=== PATIENT | male | born 1950 | race African-American/Black ===

== ENCOUNTER 2019-07-27 21:57 | Inpatient (IN) | payer MEDICARE, OTHER ==
[~2019-07-27] VITALS: Ht 185.4 cm; Wt 72.6 kg
[~2019-07-27 21:57] MED LIST: ADULT LOW DOSE81 MG PO; AMLODIPINE BESY10 MG PO; BENADRYL25 MG PO; CALCIUM600 MG PO; CENTRUM SILVER1 EAC6 PO; CIPRO500 MG PO; FISH OIL 1,0001 EAC5 PO; FLAGYL500 MG PO; GLUCOSAMINE CH1 EAC5 PO; LISINOPRIL10 MG PO; MELATONIN5 M3 PO; METOPROLOL SUCC25 MG PO; NIFEDIPINE20 MG PO; NORCO 10-325 T1 EACH PO; NORCO 5-325 TA1 EACH PO; NORVASC5 MG PO; POTASSIUM CHLO10 MEQ PO; PREDNISONE20 MG PO; TRIAMTERENE-HC1 EAC3 PO; VITAMIN C WIT1000 MG PO; ZOFRAN ODT8 MG PO
--- OUTSIDE RECORDS SUMMARY | 2019-07-27 22:00 | XMS ---
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 EJames VISIT COUNT (12 MO.) 1 PIYUSH Delgado TOTAL 1 NOTE: Visits indicate total known visits. ED/UCC VISIT TRACKING (12 MO.) 07/27/2019 21:[address] [facility] TYPE: Emergency COMPLAINT: - ABD PAIN INPATIENT VISIT TRACKING (12 MO.) No inpatient visits to display in this time frame [email or web address]
[2019-07-27] MEDS ORDERED: PROBIOTIC1 EAC4 PO (22:06)
--- NOTE | 2019-07-28 02:42 | NUR ---
ADMIT TO RM 127 PER STRETCHER FROM ED. IS ALERT ORIENTED X3. RATES ABD PAIN 3/10 AND THAT IT IS MANAGABLE NOW. NO NAUSEA. VOIDED 200ML. PT IS AWARE OF BEING NPO. TX FOR NOW IS IVF,ABX AND BOWEL REST. PT UNDERSTANDS.
--- NOTE | 2019-07-28 04:30 | NUR ---
IS SLEEPING. RESP REG.
--- NOTE | 2019-07-28 06:09 | NUR ---
pts VS complete. Mouth swabs given. nothing further needed at this time.
--- NOTE | 2019-07-28 06:54 | NUR ---
PAIN HAS INCREASED AND PT IS REQUESTING PAIN MED. GIVEN 15 MG TORRADOL IV.
--- NOTE | 2019-07-28 07:29 | NUR ---
CONT TO HAVE ABD PAIN.
--- NOTE | 2019-07-28 07:39 | NUR ---
GIVEN 5 MG MORPHINE IV FOR CONT ABD PAIN.
--- NOTE | 2019-07-28 07:45 | NUR ---
PT INTO VISIT AT THIS TIME, ALL QUESTIONS ANSWERED. PT PAIN IS BETTER, HE HAD JUST RECEIVED SOME MORPHINE.
--- NOTE | 2019-07-28 10:00 | NUR ---
PT TRANSFERED VIA BED TO ROOM 123 AT THIS TIME. REPORT CALLED TO DEDE ALL QUESTIONS ANSWERED AT THIS TIME. ALL OF THE PT PERSOANL BELONGINGS SENT WITH PT ALSO AT THIS TIME. CELL PHONE, HEEL CEMENTER AND ALL OF HIS CLOTHING. PT HAS REMAINED NPO EXCEPT FOR A SIP WITH PO MEDS THIS AM.
--- NOTE | 2019-07-28 10:00 | NUR ---
SPOKE WITH PATIENT IN ROOM. PATIENT STATES HE LIVES WITH . PATIENT HAS A WALKER AND CANE AT HOME, DOES NOT USE THEM CURRENTLY. HAS MANY STAIRS AT HOME WITH RAIL, HAS NOT HAD ISSUES WITH THIS. PATIENT DRIVES. HE IS RETIRED BUT HE STATES "I THINK I'M BUSIER NOW". HE PLANS TO RETURN HOME AT DISCHARGE, HAS A PCP AND STATES HE HAS ENOUGH MONEY FOR FOOD, BILLS AND MEDICATIONS. NO KNOWN BARRIERS AT THIS TIME TO DISCHARGE HOME. PATIENT DENIES QUESTIONS, WILL FOLLOW NEEDED.
--- NOTE | 2019-07-28 10:17 | NUR ---
PT TO MED-SURG UNIT. PT ARRIVED A&OX4, RESP EVEN AND NON LABORED. PT ORIENTED TO ROOM AND CALL LIGHT. PT DENIES NEEDS AT THIS TIME. VS ARE STABLE. NO NEEDS AT THIS TIME. CALL LIGHT WITHIN REACH.
--- NOTE | 2019-07-28 11:50 | NUR ---
ADMIN TYLENOL 1000MG IV FOR REPORTS OF 5/10 ABD PAIN.
--- NOTE | 2019-07-28 13:10 | NUR ---
KARLA FROM DR. LINTON TO ADVANCE DIET TO CLEARS.
--- NOTE | 2019-07-28 13:38 | HP ---
[facility] [address], [place] [address] Signed ADMISSION DATE: 07/28/2019 REASON FOR ADMISSION: Abdominal pain, locules of free air and mesentery gas and fever. HISTORY OF PRESENT ILLNESS: This 69-year-old black man has had over a month of vague abdominal pain. He has had no fever, chills, but felt very poorly yesterday and presented to the emergency room late at night where he was evaluated by Dr. Van. A CT scan was performed, which showed extensive inflammatory changes of the upper abdomen in the mesentery and omentum with small locule of free air and mesenteric gas. Inflammatory changes of the stomach, small bowel and transverse colon were noted as well. Extensive diverticulosis including the transverse colon was noted and findings suggestive of diverticulitis were made. There was some free fluid in the upper abdomen without focal fluid collection or abscess. There is no sign of bowel obstruction, but extensive diverticulosis of the colon. Incidental findings include a left kidney low-grade neoplasm versus hyperdense cyst. The patient is known to have had history of aortic dissection extending from the thorax. This is still present and was previously identified in 2015. The patient has had no evidence of white count, but has had a fever as high as 101 in the emergency room. He is admitted for further evaluation and care. The patient was evaluated by Dr. Byron Toribio for a reducible left inguinal hernia with repair on September 18, 2016. His other medical issues include hypertension. He has had possible aortic valve replacement in the past. Other medical issues include hypertension. He denies history of diabetes. MEDICATIONS: At time of admission include amlodipine, vitamin C, aspirin, calcium carbonate tablets, glucosamine chondroitin, Ole[place], and multivitamins. PAST SURGICAL HISTORY: Includes appendectomy and cardiac stent placement. No certain mention of aortic valve replacement, though that is a high probability. SOCIAL HISTORY: Patient lives between [place] and [facility], [place]. He is a long retired. He is a [employer] graduate of 1970. 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 REVIEW OF SYSTEMS: Electronically Signed By: CHRYSTAL LINTON MD 07/28/19 1338 PATIENT NAME: ELODIA BUSH SR HISTORY AND PHYSICAL DATE OF : 54 REPORT #: [id number] PHYSICIAN: CHRYSTAL LINTON MD PCP: JASON MENDOZA MD REPORT IS CONFIDENTIAL AND NOT TO BE RELEASED WITHOUT AUTHORIZATION [facility] [address], [place] [address] Signed He denies any chest pain or shortness of breath. He has had no hemoptysis or hematemesis or blood per rectum. His abdominal pain is mostly in the mid to lower abdomen rather in the upper abdomen. He has had no hemoptysis. PHYSICAL EXAMINATION: GENERAL: A very pleasant black man, who does not appear to be in severe distress at this time. VITAL SIGNS: Showed initial temperature of a 100.2, pulse of 89, blood pressure 122/76. NECK: Shows no thyromegaly or cervical adenopathy. Trachea is midline. CHEST: Shows normal respiratory excursion and shows no tachypnea. HEART: Regular. ABDOMEN: Flat and nondistended. There is minimal tenderness in the abdomen. No focal tenderness and clearly no peritonitis. EXTREMITIES: Show no clubbing, cyanosis, or edema. LABORATORY STUDIES: Show whi0te count of only 6.4, hematocrit 39.8, platelets 274,000. Neutrophils are 83.6%. Chem profile is essentially normal. Lactic acid is 1.2. Liver enzymes are normal. Lipase is 17. Urinalysis is essentially normal, specific gravity 1.016. CT scan was reviewed in detail as was a chest x-ray. Chest x-ray shows a prominent aortic bulb. There is no sign of effusion or other problem. ASSESSMENT AND PLAN: I have reviewed a CT scan. The inflammatory changes in the upper abdomen, which includes mesentery and omentum with small bubbles of free air in mesenteric gas. These changes are suggestive of possible transverse diverticulitis, possibly of perforation, but no well-formed abscess. His symptoms have been going on for at least a month. The possibility of a perforated peptic ulcer is considered. However, given the chronicity of symptoms, I think that is quite unlikely actually. At this point, he will be admitted to the hospital, I give him broad-spectrum antibiotic meropenem. Re-evaluation will be undertaken. I reviewed a CT scan in more detail with the Radiologist in the morning. There is no strict need for exploration at this moment. He may ultimately require laparoscopy to better characterize the source of the problem and provide for control of it. He does not have generalized peritonitis, progressive sepsis or anything else to mandate exploration urgently. Indeed, if this does represent a diverticulitis problem antibiotic therapy alone may be adequate. We discussed all this. We will initiate orders for admission to the hospital at this time. Electronically Signed By: CHRYSTAL LINTON MD 07/28/19 1338 PATIENT NAME: ELEAZAR BUNCHELODIA HISTORY AND PHYSICAL DATE OF : 54 REPORT #: [id number] PHYSICIAN: CHRYSTAL LINTON MD PCP: JASON MENDOZA MD REPORT IS CONFIDENTIAL AND NOT TO BE RELEASED WITHOUT AUTHORIZATION [address] [place] [address] Signed MD MANDEEP Guajardo/NAILA /[id number] cc: Jake Van DO Copies: JAKE VAN DO ~ Electronically Signed By: CHRYSTAL LINTON MD 07/28/19 1338 PATIENT NAME: ELODIA BUSH SR HISTORY AND PHYSICAL DATE OF : 54 REPORT #: [id number] PHYSICIAN: CHRYSTAL LINTON MD PCP: JASON MENDOZA MD REPORT IS CONFIDENTIAL AND NOT TO BE RELEASED WITHOUT AUTHORIZATION
--- NOTE | 2019-07-28 14:15 | NUR ---
PATIENT RESTING IN BED. VITAL SIGNS AND I&O DONE. CALL LIGHT WITHIN REACH. NO OTHER NEEDS AT THIS TIME
--- NOTE | 2019-07-28 17:20 | NUR ---
In and spoke with Milad. He is resting in bed. Complains of tender abd. States family members have diverticulites and he is sure this is what he has. He lives here and in [place]. 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 Is active and independent. Denies use of DME. Plans on dc to home, independent, when Dr. onofre.
--- NOTE | 2019-07-28 17:21 | NUR ---
PATIENT RESTING IN BED. VITAL SIGNS AND I&O DONE. CALL LIGHT WITHIN REACH. NO OTHER NEEDS AT THIS TIME
--- NOTE | 2019-07-28 18:35 | NUR ---
Admin toradol 15mg ivp for reports of 5/10 abd pain.
--- NOTE | 2019-07-28 20:53 | NUR ---
PT RESPONDS WHEN ENTERED ROOM. PT STATES THAT PAIN OCCURS WHEN HE FLEXES OR USES HIS ABD MUCSLES, WHILE HE LAYS STILL HE HAS NO PAIN. PT LUNG SOUNDS CLEAR, BOWLE TONE ACTIVE. URINE IS CLEAR DRU COLORED, QS. PTM AOX3. EXPRESSED HE DEFFINATLY FEELING BETTER BUT WANTING TO GET A GOOD NIGHTS REST.IV SITE WNL DRESSING CDI, LR RUNNING AT 10ML/HR. CALL LIGHT IN REACH, NO REQUEST AT THIS TIME
--- NOTE | 2019-07-28 21:08 | NUR ---
ROUNDED CHARGE. PATIENT IS RESTING IN BED. SHERICE LOYD PRESENT IN ROOM. PATIENT DENIES ANY COMMENTS, QUESTIONS OR CONCERNS. NO NEEDS NOTED. CALL LIGHT IN REACH.
--- NOTE | 2019-07-29 02:08 | NUR ---
0110 REPORT FROM ALTAGRACIA RN, THIS RN RESUMING CARE. PT SLEEPING.
--- NOTE | 2019-07-29 02:50 | NUR ---
1450 MEDICATION GIVEN PER EMAR FOR ELEVATED TEMP, IV FLUSHED AND WNL. PLAN TO START NEW IV DUE TO PLACEMENT AND FEILD START. PT AGREED.
--- NOTE | 2019-07-29 06:34 | NUR ---
PT ASLEEP OFF AND ON THROUGHOUT NIGHT, ABD NONDISTENDED AND PT DENIES TENDERNESS WITH PALPITATION. PT TEMP INCREASED TO 100.9 AND IV MEDICATION GIVEN, TEMP DECREASING AT THIS TIME. PT DRINKING FLUIDS AND NO NAUSEA AND MINIMAL PAIN NOTED. IV FLUIDS INFUSING AND PT ALERT AND ORIENTED.
--- NOTE | 2019-07-29 07:41 | NUR ---
0720: BEDSIDE REPORT RECIEVED FROM JOSE LOYD. PT LYING IN HIS BED AND HE STATES HE HAS SOME ABD PAIN BUT THAT IT REMAINS AT AN ACCEPTABLE LEVEL FOR HIM. HE STATES HE WILL CALL IF THE PAIN INCREASES. HE DENIES ANY OTHER PROBLEMS. CALL SALDIVAR WITHIN REACH.
--- NOTE | 2019-07-29 08:56 | NUR ---
PT RESTING IN HIS BED AND STATES HIS ABD PAIN IS A 6/10. HE DENIES ANY NAUSEA OR OTHER PROBLEMS. SEE EMAR. PT RECEIVING HIS ORDERED IV MEROPENUM AT THIS TIME.
--- NOTE | 2019-07-29 10:21 | NUR ---
Pt sleeping, RR 14.
[2019-07-29] MEDS ORDERED: TRIAMTERENE-HC1 EAC1 PO (10:29)
[2019-07-29] MEDS ORDERED: TAMSULOSIN HCL0.4 MG PO (10:30)
[2019-07-29] MEDS ORDERED: NORCO 5-325 TA1 EACH PO (10:30)
--- NOTE | 2019-07-29 10:59 | NUR ---
MED REC COMPLETE
--- NOTE | 2019-07-29 11:03 | NUR ---
Pt resting in his bed, he states his pain is now controled at a 3-4. He was encouarged to use his IS and to do some walking. Milad states he will call in a short bit to be taken for a walk.
--- NOTE | 2019-07-29 12:36 | NUR ---
PT STATES HIS PAIN IS NOW A 2/10 WHICH IS AN IMPROVMENT. SCD'S ARE ON AND RUNNING. BOWEL SOUNDS ARE ACTIVE. CALL SALDIVAR WITHIN REACH.
--- NOTE | 2019-07-29 13:15 | NUR ---
DR LINTON TO THE ROOM CHECKING ON THE PT. ELODIA DENIES PAIN OR PROBLEMS AT THIS TIME.
--- NOTE | 2019-07-29 14:40 | NUR ---
PT ATE 50% OF HIS LUNCH AND TOLERATED IT WELL AND HE CONTINUES TO DENIE PAIN FOLLOWING EATING. PT JUST RETURNED TO HIS ROOM FOLLOWING WALKING TWO LAPS IN THE HALLS. HE IS NOW GETTING READY FOR A SHOWER.
--- NOTE | 2019-07-29 14:49 | NUR ---
PT WAS LAYING IN BED WITH LIGHTS OUT. HE IS ALERT AND ORIENTED AND STATED THAT HIS PAIN WAS UNDER CONTROL. HE JUST WANTED TO GET SOME REST. PT WAS CHILLED- TURNED TEMP UP AND STAFF BROUGHT HIM A WARM BLANKET. EXTENDED A BLESSING, WILL FOLLOW NEEDED
--- NOTE | 2019-07-29 15:05 | NUR ---
PT HAS A TEMP OF 99.3 FOLLOWING A SHOWER. PT HANDED HIS IS WHICH HE IS USING AT THIS TIME, HE DENIES ANY PROBLEMS. WILL CONTINUE TO MONITOR.
--- NOTE | 2019-07-29 15:52 | NUR ---
PATIENT AND I WALKED TWO LAPS AROUND MED SURG. THIS AFTERNOON.
--- NOTE | 2019-07-29 15:56 | NUR ---
PTS FAMILY TO NURSES STATION STATING "ELODIA IS FREEZING COLD." VITALS TAKEN. TEMPERATURE NOTED TO BE 100.2. WARM BLANKETS PROVIDED. PTS RN NOTIFIED FOR MEDICAITON ADMINISTRATION. PT DENIES ADDITIONAL REQUESTS OR COMPLAINTS AT THIS TIME. CALL LIGHT WITHIN REACH. FAMILY AT BEDSIDE.
--- NOTE | 2019-07-29 16:01 | NUR ---
TEMP 100.2, PT ENCOUARGED TO USE HIS IS WHICH HE IS DOING. SEE EMAR.
--- NOTE | 2019-07-29 16:24 | NUR ---
101.8, PT JUST FINISHED A DOSE OF IV TYLENOL. HE IS CURRENTLY USING HIS IS AND HIS TEMP IS NOW 98.3
--- NOTE | 2019-07-29 18:00 | NUR ---
Patient sitting up in bed with family in room. IV abx infusing at 33 mls/hr. Temp of 99.5 degrees, patient ambulated hallways three times. Returned to bed, temp of 99.4 degrees. Warm blanket provided, denies further needs. Call light within reach.
--- NOTE | 2019-07-29 19:30 | NUR ---
PATIENT IN NO PAIN VISITING WITH SIGNIFICANT OTHER AT THIS TIME. CALL LIGHT IN REACH.
--- NOTE | 2019-07-29 21:00 | NUR ---
PATIENT'S SPOUSE GOING HOME. PATIENT HAVING NO PAIN, URINAL EMPTIED, NEW WAATER GIVEN, PM MEDS GIVEN. PATINT HAS NO OTHER NEEDS. LIGHT TURNED DOWN AND CALL LIGHT IN REACH.
--- NOTE | 2019-07-29 22:44 | NUR ---
PATIENT LAYING IN BED WATCHING TV, IN NO DISTRESS, CALL LIGHT IN REACH.
--- NOTE | 2019-07-29 23:15 | NUR ---
PATIENT STARTED OUT WITH FEVER OVER 101F, BUT THE ROOM WAS 76 DEGREES AND THE PATIENT WAS COVERED WITH A LOT OF COVERS. THERMOSTAT TURNED DOWN AND SOME BLANKETS TAKEN OFF, FEVER [id number] AND PATIENT GETTING A DOSE OF IV TYLENOL AND USING IS. CALL LIGHT IN REACH.
--- NOTE | 2019-07-30 00:58 | NUR ---
PATIENT'S FEVER DOWN SINCE THE IV TYLENOL, RESTING QUIETLY ON HIS RIGHT SIDE ,EYES CLOSED, RESPIRATIONS REGULAR AND EVEN. CALL LIGHT IN REACH.
--- NOTE | 2019-07-30 03:10 | NUR ---
PATIENT CALLED AND SAID HE WAS ALL WET FROM SWEATING. WENT TO PATIENT'S ROOM CHANGED HIS GOWN AND LINEN, FEVER HAD BROKE DOWN TO 97.8F ORAL. I REFILLED THE PATIENT'S WATER GLASS AND EMPTIED HIS URINAL AND HE IS GOING TO TRY AND GET SOME MORE SLEEP.
--- NOTE | 2019-07-30 05:20 | NUR ---
PATIENT HAD A FEVER THE FIRST PART OF THE SHIFT AND IT BROKE A COUPLE HOURS AGO AFTER IV TYLENOL, HAD A GOOD SWEAT AND WE CHANGED HIS WET GARMENTS AND BEDDING. PATIENT HAS RESTED WELL AND WITH VERY LITTLE DISCOMFORT THROUGH THE NIGHT STILL GETTING IV ANTIBIOTICS. RESTING QUIETLY AT THIS TIME EYES CLOSED AND RESPIRATIONS EVEN. CALL LIGHT IN REACH.
--- NOTE | 2019-07-30 07:05 | NUR ---
0655: Report recieved from Jose LOYD. Pt sleeping, call joiner within reach.
--- NOTE | 2019-07-30 09:16 | NUR ---
PT STATES HE ATE MOST OF HIS BREAKFAST BUT STATES HE STOPPED WHEN HE COULD TELL IF HE CONTINUED HE WOULD GET A STOMACH ACHE. TEMP THIS AM IS 99.1 AND HE RAN A FEVER LAST NIGHT PER THE LENS MARKER RN. DR LINTON ARRIVED TO THE ROOM AND WAS UPDATED TO THE PT'S TEMP LAST NIGHT. PT DENIES ANY PAIN AT THIS TIME.
--- NOTE | 2019-07-30 09:43 | NUR ---
PATIENT GIVEN GASTROGRAFIN IN APPLE JUICE WITH INSTRUCTIONS TO DRINK ONE GLASS AT 0945 AND THE SECOND AT 1045. PATIENT TO HAVE CT SCAN BETWEEN 1200 AND 1300 TODAY.
--- NOTE | 2019-07-30 10:20 | NUR ---
PT DENIES ANY PAIN OR PROBLEMS OTHER THAN NOW FEELING BOARD. HE IS WATCHING TV AT THIS TIME.
--- NOTE | 2019-07-30 12:15 | NUR ---
PATIENT UP TO BATHROOM TO VOID, BM, AND WAS NAUSEATED. PATIENT GIVEN 8MG OF IV ZOFRAN. THREE-HOUR IV MERRUM INFUSING.
--- NOTE | 2019-07-30 12:33 | NUR ---
Pt is off the floor as he was taken to CT.
--- NOTE | 2019-07-30 12:42 | NUR ---
PT LAYING IN BED ON R SIDE. HE IS ALERT AND ORIENTED. REQUESTED I TURN DOWN LIGHTS AND HE WANTED TO TAKE A NAP. WILL FOLLOW NEEDED
--- NOTE | 2019-07-30 13:04 | NUR ---
PATIENT RETURNED FROM CT. PATIENT HAS STOMACH CRAMPS, NAUSEATED AND VOMITED 100ML UPON RETURN. PATIENT GIVEN IV TORADOL FOR 7/10 SHARP ABD PAINS. PATIENT GIVEN WARM BLANKETS, PAIN HAS SLIGHTLY SUBSIDED.
--- NOTE | 2019-07-30 13:15 | NUR ---
In to speak with pt, he is gone for a CT. Will follow up later.
--- NOTE | 2019-07-30 13:16 | NUR ---
UPON THE PT RETURNING TO HIS ROOM FROM CT I WAS INFORMED THAT THE PT IS HAVING PAIN AND HAD SOME NAUSEA AND VOMITING AND HAD BEEN MEDICATED FOR BOTH. THE PT STATES HIS PAIN IS AN 8/10 AND WAS GIVEN A DOSE OF MS, SEE EMAR.
--- NOTE | 2019-07-30 13:25 | NUR ---
DR LINTON CAME TO THE ROOM AND CHECKED UP ON THE PT.
--- NOTE | 2019-07-30 13:44 | NUR ---
PT LEAVING FOR THE OR AT THIS TIME.
--- NOTE | 2019-07-30 13:50 | NUR ---
PATIENT GOT A SURGICAL WIPE DOWN. NEW GOWN.
--- NOTE | 2019-07-30 18:35 | NUR ---
07/30/191834 Aurora Cuellar 1824: PATIENT'S EYES OPEN. SPIT OUT ORAL AIRWAY. PATIENT THEN FELL BACK ASLEEP.
--- NOTE | 2019-07-30 19:00 | NUR ---
RECEIVED REPORT FROM RACH DELAROSA. pt NOT BACK FROM SURGERY YET. WHITEBOARD UPDATED.
--- NOTE | 2019-07-30 19:20 | NUR ---
190: Pt returned to room 123. Report recieved from Aurora LOYD. Milad remains drowsy but answers direct questions and follows commands. He denies any pain at this time. Mid line abd incision dressing has a very small amount of noted drainage in the middle of the dressing. The dressing covering the LLQ IVY drain site is CDI, the IVY drain is functioning correctly. His iliostomy bag is intact with a scant amount of green liquid drainage noted. NG tube is in place and taped. Call joiner within reach. The pt's friend is at the bedside. Yadav cath in place and draining clear yellow urine. SCD's on and running.
--- NOTE | 2019-07-30 19:29 | NUR ---
BETITO PLACEDDiamond SINGLETARY CRNA TO THE ROOM CHECKING IN ON THE PT.
--- NOTE | 2019-07-30 19:43 | NUR ---
ROUNDED ON pt. RECEIVED UPDATED REPORT FROM RACH DELAROSA. pt RESTING DROWSY, DENIES PAIN AND NAUSEA AT THIS TIME. VISITOR AT BEDSIDE. CALL LIGHT WITHIN REACH.
--- NOTE | 2019-07-30 20:35 | NUR ---
ASSESSMENT DONE. pt DROWSY. DRESSING CDI. NG TO LIS. PICKETT DRAINING WELL. ROOM TIDIED. MEDICATIONS GIVEN (SEE MAR). VISITOR AT BEDSIDE. DENIES PAIN AND NAUSEA AT THIS TIME. NO REQUESTS. CALL LIGHT WITHIN REACH.
--- NOTE | 2019-07-30 22:20 | NUR ---
MEDICATION DUE. pt LESS DROWSY THAN EARLIER IN SHIFT. SUCTION HAD BRIEFLY DISCONNECTED, TROUBLESHOT, NEW CONNECTOR IN PLACE. LINENS AND GOWN CHANGED, pt ASSISTED. MEDICATION INFUSING (SEE MAR). NO REQUESTS AT THIS TIME. CALL LIGHT WITHIN REACH. VISITOR AT BEDSIDE.
--- NOTE | 2019-07-30 23:11 | NUR ---
ROUNDED ON pt, RESTING IN BED. NO REQUESTS AT THIS TIME. NG TUBE TO LOW INTERMITTENT SUCTION, CONNECTION HOLDING. LIGHTS OFF FOR COMFORT. CALL LIGHT WITHIN REACH.
--- NOTE | 2019-07-31 01:27 | NUR ---
ROUNDED ON pt. RESTING WITH EYES CLOSED, RESPIRATIONS REGULAR AND UNLABORED. CALL LIGHT WITHIN REACH.
--- NOTE | 2019-07-31 02:30 | NUR ---
pt RESTING IN BED, WOKE TO NOISE. VITALS DONE. NEW IV FLUIDS HUNG. ASSESSMENT DONE. MIDLINE DRESSING CDI. DRAIN DRESSING SATURATED, NEW DRESSING APPLIED TO MAINTAIN SKIN INTEGRITY. pt DENIED PAIN AT THIS TIME. NG TUBE NOT DRAINING WELL, AIR BOLUS HEARD IN GASTRIC AREA. NG TUBE NOW DRAINING WELL TO LIS. NO REQUESTS AT THIS TIME. CALL LIGHT WITHIN REACH.
--- NOTE | 2019-07-31 04:23 | NUR ---
CALL LIGHT ON. pt STATED "IT'S BACKING UP IN A BIT" TROUBLESHOT NG TUBE. DRAINING WELL. pt REPORTED IT FELT BETTER. NO FURTHER REQUESTS AT THIS TIME. CALL LIGHT WITHIN REACH.
--- NOTE | 2019-07-31 06:38 | NUR ---
pt RESTED ON AN OFF DURING SHIFT. NG TO LIS, THICK OUTPUT REQUIRING ATTENTION TO TUBING. IVY DRAIN SATURATED AND CHANGED, SEROSANG OUTPUT. ILEOSTOMY DRAINING TO GRAVITY. PICKETT WITH DILUTE URINE. IVF AND IV ABX. NO PAIN DURING SHIFT. NO NAUSEA. USES CALL LIGHT APPROPRIATELY.
--- NOTE | 2019-07-31 07:55 | NUR ---
PATIENT RESTING IN BED. IN ROOM. PATIENT'S FACE AND HANDS CLEANED. CALL LIGHT WITHIN REACH. NO OTHER NEEDS AT THIS TIME
--- NOTE | 2019-07-31 08:56 | OR ---
[facility] [address], [place] [address] Signed DATE OF OPERATION: 07/30/2019 SURGEON: Chrystal Linton MD PREOPERATIVE DIAGNOSIS: Free intraperitoneal air consistent with perforated viscus and generalized peritonitis. POSTOPERATIVE DIAGNOSIS: Perforated sigmoid diverticulitis with peridiverticular and pelvic abscess. PROCEDURES PERFORMED: 1. Exploration of abdomen with drainage of pelvic and abdominal abscess fluid. 2. Left colectomy with sigmoidectomy and side-to-end coloproctostomy. 3. Splenic flexure mobilization. 4. Protective diverting loop ileostomy. ANESTHESIA: General endotracheal; Chrystal Rivera CRNA, and postoperative TAP block. INDICATIONS: This 69-year-old black man is admitted to the hospital upon presentation to the emergency room on July 28, 2019. The patient has been having about a month of mid abdominal pain. His evaluation in the emergency room included a CT scan of the abdomen, which showed scattered small bubbles of air considered to be extraintestinal. Surprisingly, his white count was normal. He was afebrile and had only minimal tenderness. As he had other findings on the CT scan that were significant, including extensive diverticular changes of the sigmoid and even the transverse colon as well as a known left renal neoplasm or cyst in addition to prior history of aortic dissection down to the level of the diaphragm, he was considered most likely to have acute transverse diverticulitis. Notably, there was inflammatory fluid in the upper abdomen. There is no distinct collection noted on CT scan in the sigmoid, though he did have air bubbles distributed throughout the abdomen more or less. He was admitted to the hospital and observed closely, given intravenous fluids and intravenous antibiotic meropenem. He has had improvement of his symptoms with antibiotic therapy alone. Advanced from a clear liquid to a full liquid diet. As he has had nighttime temperature elevation to nearly 101, but without sign of systemic toxicity or focal tenderness a CT scan was repeated this time with a GI contrast. There remains inflammatory changes in the upper abdomen as well as the sigmoid area, thickening of the antrum, but no extravasation of contrast from the stomach or duodenum. Electronically Signed By: CHRYSTAL LINTON MD 07/31/19 0856 PATIENT NAME: ELODIA BUSH SR OPERATIVE REPORT DATE OF : 54 REPORT #: [id number] PHYSICIAN: CHRYSTAL LINTON MD PCP: JASON MENDOZA MD REPORT IS CONFIDENTIAL AND NOT TO BE RELEASED WITHOUT AUTHORIZATION [facility] [address], [place] [address] Signed Notably different at this point, however, is true free intraperitoneal air for which significant perforated viscus is likely present. Notably following the CT scan, he has far more abdominal pain and tenderness. The tenderness and pain remained localized in the mid abdomen in the region of the umbilicus. I have recommended and he accepts the recommendation to undergo exploration of the abdomen, namely has a perforated viscus whatever it might be. This might involve bowel resection or other intervention including colostomy or other stoma. I spoke with his on the phone just prior to operation, who was not on premises at that time and of course reviewed all this with the patient himself. They both understand and wished to proceed. FINDINGS: Generalized inflammatory fluid was noted throughout the abdomen and a rind consistent with abscess noted in the mesentery of the sigmoid as well as in the low pelvis. The offending perforation was that of sigmoid diverticulitis. The upper abdomen showed the stomach to be normal essentially. There was a palpable left renal abnormality in the retroperitoneum, which was not further explored. The small bowel was entirely normal. There was extensive diverticulosis, but the most dominant disease was that of the sigmoid and mid left colon. Wide resection of the offending segment of colon with perforation was undertaken. Mobilization of splenic flexure was accomplished as well and a side-to-end coloproctostomy accomplished. As the bowel was not formally prepped, a diverting loop ileostomy as a protective measure was undertaken as well. By conclusion, the abdomen was well irrigated, anastomosis complete, and diverting ileostomy accomplished. DESCRIPTION OF PROCEDURE: The patient was brought to the operating room and given a general endotracheal anesthetic. A Yadav catheter was placed. Preoperative antibiotic Primaxin had been given. Sequential compression device stockings were used. The abdomen was clipped and prepared with chlorhexidine solution and draped sterilely. The patient has a thin abdominal wall. An incision was made just above the umbilicus and extended inferiorly below allowing for entry into the abdomen. Generalized inflammatory fluid was noted within the peritoneal cavity and Gram stain and cultures were obtained. Small bowel was secondarily inflamed. The incision was extended inferiorly a bit to allow for gentle palpation. There were very firm diverticula of the left colon and sigmoid and a very redundant sigmoid as well. The small bowel was withdrawn from the abdomen. There was a thick peel consistent with abscess cavity on the mesentery of the small bowel. Further examination in the lower left showed a fibrinous peel and collection of purulence consistent with abscess. Further examination and mobility of the sigmoid with gentle blunt dissection confirmed a perforated diverticulum of the sigmoid on the mesenteric side. Photographs were taken. Further mobility of the rectosigmoid showed it to be Electronically Signed By: CHRYSTAL LINTON MD 07/31/19 0856 PATIENT NAME: ELODIA BUSH SR OPERATIVE REPORT DATE OF : 54 REPORT #: [id number] PHYSICIAN: CHRYSTAL LINTON MD PCP: JASON MENDOZA MD REPORT IS CONFIDENTIAL AND NOT TO BE RELEASED WITHOUT AUTHORIZATION [facility] [address], [place] [address] Signed markedly redundant with very large diverticula and a fibrinous peel type cavity in the pelvis itself. This area was suctioned free of its inflammatory fluid. Upper abdominal examination showed the stomach to be soft. Nasogastric tube was manipulated into position. There was surgical absence of the gallbladder and omental adhesions in the subhepatic space. The small bowel was run from ligament of Treitz to the terminal ileum showing no sign of abnormality. There was specifically no perforation, diverticulum, or other abnormality. It was clear that sigmoid resection would be most appropriate. A bowel bag was used to enclose the small bowel loops and a Bookwalter retractor attached to the table. The bowel loops were held outside of the abdomen to allow for space. The white line of Toldt was mobilized, freeing up the surprisingly redundant coiled sigmoid and rectosigmoid. A very thickened mesentery corresponding to the perforation area was noted. An area in the mid descending colon was designated as appropriate for transection. The mesentery of the left colon and sigmoid was scored with electrocautery and sequential application of hemostats undertaken to the mesenteric vessels. The vascular pedicles were secured with 2-0 silk ties, doubly applied to the major arcades. The aorta was notably soft and tortuous in its configuration. The white line of Toldt was incised more cephalad including mobilization of the splenic flexure. Palpation in the retroperitoneum revealed the left kidney and its known inferior pole protuberance and whether this is a complex cyst or neoplasm remains uncertain. Gerota fascia was not opened. Only the mesentery of the left colon and splenic flexure was freed from the underlying Gerota fascia. An area designated as a coalescence of the tinea epiploica (beginning of true rectum) was undertaken. The left colon was transected in the mid descending with a 75 mm YOSHI stapling device and further dissection inferiorly undertaken. Ultimately, the mesentery up to the margin of transection distally was accomplished. 75 mm YOSHI stapling device was used to transect the upper rectum at that site as well. The specimen was passed off the table, opened on the back table by the circulating nurse confirming no evidence of malignancy, but impressive large and small diverticula with stool balls and the area of perforation well demonstrated. Consideration was made for simple descending colostomy with Elma pouch, but given his overall situation, a primary anastomosis was deemed reasonable so long as a protective ileostomy could be undertaken. The patient had not undergone a formal bowel prep, but did not have solid stool within the colon so far as could be told. Electronically Signed By: CHRYSTAL LINTON MD 07/31/19 0856 PATIENT NAME: ELODIA BUSH SR OPERATIVE REPORT DATE OF : 54 REPORT #: [id number] PHYSICIAN: CHRYSTAL LINTON MD PCP: JASON MENDOZA MD REPORT IS CONFIDENTIAL AND NOT TO BE RELEASED WITHOUT AUTHORIZATION [facility] [address] [place] [id number] Signed The area of proposed anastomosis was isolated with laparotomy packs. A tension-free anastomosis would be accomplished since the splenic flexure had been largely mobilized. A side-to-end coloproctostomy was undertaken in a two-layer technique of interrupted 3-0 silk suture. The staple line of the proximal segment had been oversewn with interrupted 0 silk to avoid staple line blowout. There was mixed solid and liquid stool within the proximal and distal segments and it was not widely spilled by any means. At conclusion, the anastomosis was patent and waterproof. Isolating laparotomy packs were removed as were gloves and irrigation then undertaken of the abdominal cavity. Through a left lower quadrant stab incision, a 7 mm flat Caesar drain was placed in the depths of the pelvis given the rind from prior abscess cavity. It was secured to the skin with nylon suture. The small bowel was once again examined fully, removed from the bowel bag, having some amount of inflammation related to its encumbrance in the bowel bag but not much. The upper abdomen was copiously irrigated with multiple liters of sterile saline solution. Small bowel was replaced into the abdominal cavity in an anatomic configuration. A segment of ileum was designated as appropriate for a protective loop ileostomy. In the right mid abdomen, directly over the right rectus abdominis, an ellipse of skin was excised with a 20 blade and subcutaneous tissue divided and the rectus sheath incised in a cruciate configuration allowing for placement of a heavy clamp between the muscle fibers of the rectus abdominis. Once the ileostomy site was developed, a Luis clamp was placed through the abdominal wall delivering the ileum through it to the outside. Orientation of the bowel was assured anticipating maturation after closure of the abdomen. Small bowel loops were arranged to natural anatomic configuration, omentum placed over the abdominal contents. Midline fascia was reapproximated with running bidirectional #1 PDS suture. Subcutaneous tissue was copiously irrigated with saline solution. Skin closed with running subcuticular 3-0 Vicryl. Steri-Strips were applied as was a silver sponge dressing. Attention was then turned towards the maturation of the ileostomy. Using 3-0 Vicryl and a transverse incision in the loop ileostomy, the ileostomy was matured. Care was taken to allow for good projection of the ileostomy so as to avoid retraction or other problems. A good healthy ileostomy was noted. An ostomy wafer was cut to configuration and applied to the ileostomy site. Digital examination of the proximal and distal limbs of the ileostomy found them to be patent and in a reasonably good alignment with the abdominal fascia. The patient was ultimately extubated and transported to recovery room in good condition Electronically Signed By: CHRYSTAL LINTON MD 07/31/19 0856 PATIENT NAME: ELODIA BUSH SR OPERATIVE REPORT DATE OF : 54 REPORT #: [id number] PHYSICIAN: CHRYSTAL LINTON MD PCP: JASON MENDOZA MD REPORT IS CONFIDENTIAL AND NOT TO BE RELEASED WITHOUT AUTHORIZATION [facility] [address] [place] [id number] Signed and suffered no complication. Sponge, needle, and instrument counts reported as correct x3. MD MANDEEP Guajardo/GENAROL /[id number] cc: MD Jatin Ann MD Cynthia Sue Holmes, MD Copies: JASON MENDOZA MD, ZACHARY MD HOLMES, CYNTHIA SUE MD ~ Electronically Signed By: CHRYSTAL LINTON MD 07/31/19 0856 PATIENT NAME: ELODIA BUSH SR OPERATIVE REPORT DATE OF : 54 REPORT #: [id number] PHYSICIAN: CHRYSTAL LINTON MD PCP: JASON MENDOZA MD REPORT IS CONFIDENTIAL AND NOT TO BE RELEASED WITHOUT AUTHORIZATION
--- NOTE | 2019-07-31 08:56 | NUR ---
PT AWAKE, SITTING UP IN BED. NG REMOVED FROM PROVIDER. PICKETT REMOVED FROM THIS RN PER DOC ORDER; CATHETER TIP INTACT, PT TOLERATED REMOVAL WELL. CALL LIGHT WITHIN REACH. NO NEEDS AT THIS TIME.
--- NOTE | 2019-07-31 10:05 | NUR ---
PATIENT RESTING IN BED. VITAL SIGNS AND I&O DONE. CALL LIGHT WITHIN REACH. NO OTHER NEEDS AT THIS TIME
--- NOTE | 2019-07-31 13:04 | NUR ---
PATIENT RESTING IN BED. VITAL SIGNS AND I&O DONE. CALL LIGHT WITHIN REACH. ICE WATER GIVEN. NO OTHER NEEDS AT THIS TIME
--- NOTE | 2019-07-31 15:45 | NUR ---
ADMIN TYLENOL 1000MG IVP FOR REPORTS OF 6/10 ABD PAIN.
--- NOTE | 2019-07-31 17:00 | NUR ---
PATIENT RESTING IN BED. FAMILY IN ROOM. PATIENT GOES TO WALK IN THE HALLWAY. ONE PERSON ASSISTING. PATIENT BACKS TO CHAIR. LINENS CHANGED. PATIENT BACKS TO BED. CALL LIGHT WITHIN REACH. NO OTHER NEEDS AT THIS TIME
--- NOTE | 2019-07-31 18:02 | NUR ---
PATIENT RESTING IN BED. IN ROOM. VITAL SIGNS AND I&O DONE. CALL LIGHT WITHIN REACH. NO OTHER NEEDS AT THIS TIME
--- NOTE | 2019-07-31 19:10 | NUR ---
TOWBOAT CAPTAIN NOTIFIED THIS RN pt WAS VOMITING. PRN NAUSEA MED GIVEN (SEE MAR). RECEIVED REPORT FROM RACH AGUAYO. WHITEBOARD UPDATED. NO FURTHER REQUESTS AT THIS TIME. VISITORS AT BEDSIDE. CALL IGHT WITHIN REACH.
--- NOTE | 2019-07-31 19:59 | EKG ---
[facility] [address] [facility] [place] [facility] [place] [address] Signed Normal sinus rhythm Left ventricular hypertrophy with repolarization abnormality Abnormal ECG When compared with ECG of 13-SEP-2016 11:05, No significant change was found Confirmed by PAULA OCONNOR MD ([id number]) on 07/31/2019 7:59:06 PM Electronically Signed By: PAULA OCONNOR MD 07/31/191958 PATIENT NAME: ELODIA BUSH SR Electrocardiogram DATE OF : 54 PHYSICIAN: PAULA OCONNOR MD REPORT #: [id number] REPORT IS CONFIDENTIAL AND NOT TO BE RELEASED WITHOUT AUTHORIZATION
--- NOTE | 2019-07-31 20:00 | NUR ---
pt REPORTED "MY STOMACH IS KILLING ME, IT FEELS LIKE A REALLY BAD STOMACH ACHE". ABD IS FIRM BUT NOT TENDER, BOWEL TONES ARE PRESENT. MD CALLED. NEW ORDERS ENTERED.
--- NOTE | 2019-07-31 20:55 | NUR ---
ROUNDED ON pt. REPORTED THAT HE DOES NOT FEELING LIKE VOMITING RIGHT NOW BUT HE IS EXPERIENCING 8/10 PAIN. PRN PAIN MED GIVEN (SEE MAR). WILL CONTINUE TO MONITOR. CALL LIGHT WITHIN REACH.
--- NOTE | 2019-07-31 22:17 | NUR ---
VITALS AND I&OS DONE AND CHARTED. BEDSIDE TABLE AND CALL LIGHT IN REACH.
--- NOTE | 2019-07-31 22:43 | NUR ---
pt REPORTS THAT PAIN IS BETTER BUT HE IS "SO TIRED, I JUST NEED TO SLEEP" SETUP BED FOR VISITOR. MEDICATIONS ADMINISTERED (SEE MAR). BURPED OSTOMY BAG. DENIES NAUSEA AT THIS TIME. LIGHTS OFF FOR COMFORT. CALL LIGHT WITHIN REACH. NO FURTHER REQUESTS AT THIS TIME.
--- NOTE | 2019-07-31 23:08 | NUR ---
ROUNDED ON pt. RESTING WITH EYES CLOSED, RESPIRATIONS REGULAR AND UNLABORED. CALL LIGHT WITHIN REACH.
--- NOTE | 2019-08-01 00:14 | NUR ---
ROUNDED ON pt. JUST VOIDED. REPORTED PAIN IS "FINE" NO REQUESTS AT THIS TIME. CALL LIGHT WITHIN REACH.
--- NOTE | 2019-08-01 01:54 | NUR ---
PT CALLED REQUESTING HIS IVY DRAIN BE EMPTIED.
--- NOTE | 2019-08-01 02:10 | NUR ---
CHECKED ON PT, PT WAS PRODUCING EMISIS, HAD C/O STOMACH PAIN, INFORMED RN
--- NOTE | 2019-08-01 02:41 | NUR ---
REPORT FROM STAFF THAT pt WAS VOMITING. IN TO ASSESS. pt REPORTED 8/10 PAIN. PRN NAUSEA AND PAIN MEDS GIVEN (SEE MAR). pt AGITATED, STATED "IT'S ALL THE THINGS YOU ARE PUTTING IN ME!" INITIALLY DECLINED NAUSEA MEDICATION, THEN ACCEPTED. ASSESSMENT DONE. BOWEL TONES PRESENT. SMALL SHADOWING NOTED ON MIDLINE INCISION DRESSING. EDUCATED ON DISEASE AND POST OP RECOVERY AND MEDICATIONS. QUESTIONS ANSWERED. CALL LIGHT WITHIN REACH.
--- NOTE | 2019-08-01 03:48 | NUR ---
ROUNDED ON pt. RESTING WITH EYES CLOSED, RESPIRATIONS REGULAR AND UNLABORED. CALL LIGHT WITHIN REACH.
--- NOTE | 2019-08-01 05:39 | NUR ---
CALL LIGHT ON pt REPORTED "MY BAGS ARE FULL" EMPTIED IVY AND OSTOMY PER REQUEST, SMALL AMOUNT OF OUTPUT. pt REPORTED A FEELING OF "FULLNESS" ACROSS HIS LOWER ABD. NOT TENDER. PRN PAIN MED FOR 5/10 PAIN. pt INITIALLY REFUSED ABX STATING "THAT'S THE THING THAT IS MAKING ME NAUSEOUS!" THEN COMPLAINED ABOUT USING TWO IV SITES "CAN'T IT JUST BE IN ONE?" EDUCATED ON REASON FOR SEPARATE SITE. pt CONTINUED TO REFUSED, AGREED TO ABX IF IVF WAS STOPPED AND ONLY IV SITE ON RIGHT ARM WAS USED. ABX INFUSING. pt BURPING. NO FURTHER REQUESTS AT THIS TIME. CALL LIGHT WITHIN REACH.
--- NOTE | 2019-08-01 06:23 | NUR ---
pt HAD MULTIPLE BOUTS OF NAUSEA, EMESIS X3. ADAMATELY AGAINST NG TUBE PLACEMENT. MEDICATED WITH PRN NAUSEA MEDS. POST EMESIS PAIN REQUIRED PRN OPIOID X2. pt ASSOCIATES FEELING OF "FULLNESS" WITH IVY DRAIN, OSTOMY, AND IV MEDS. SCANT NEW SHADOWING ON MIDLINE DRESSING. IVY DRESSING CDI, DRAINING SEROUS FLUID. USES CALL LIGHT APPROPRIATELY.
--- NOTE | 2019-08-01 07:40 | NUR ---
REPORT RECEIVED FROM SUPPLIES PACKER RNMALIKA. IT WAS REPORTED PT SLEPT VERY LITTLE D/T N/V. PT IS RESTING AT THIS TIME, EYES CLOSED, RESP EVEN AND NON LABORED. PT APPEARS COMFORTABLE. WILL LET PT REST FOR NOW. CALL LIGHT WITHIN REACH. NO NEEDS AT THIS TIME.
--- NOTE | 2019-08-01 08:02 | NUR ---
ADMIN ZOFRAN 8MG IVP FOR N/V. 400ML GREEN/BROWNISH EMESIS NOTED. SUGGESTED TO PT THAT HE SHOULD RECONSIDER NG PLACEMENT FOR RELIEF OF N/V. PT REFUSING NG AT THIS TIME. COOL COMPRESS PROVIDED. CALL LIGHT WITHIN REACH OF PT.
--- NOTE | 2019-08-01 08:18 | NUR ---
PATIENT IN BED RESTING, HE THEN STARTED TO THROW UP. COLD CLOTH ON FOREHEAD. CALL LIGHT WITHIN REACH. NO FURTHER NEEDS AT THIS TIME. NURSE CAME TO ROOM.
--- NOTE | 2019-08-01 10:03 | NUR ---
DR. LINTON CALLED UNIT TO CHECK ON PT. NO NEW ORDERS.
--- NOTE | 2019-08-01 10:32 | NUR ---
Phenergan 12.5mg ivp admin for n/v.
--- NOTE | 2019-08-01 12:25 | NUR ---
PATIENT REFUSED TO WALK WITH ME, NURSE AWARE
--- NOTE | 2019-08-01 12:35 | NUR ---
PT WALKED THE HALLS; STANDBY ASSIST TOLERATING WELL. ADMIN TYLENOL 1000MG IVP FOR REPORTS OF 6/10 ABD PAIN. PT REPORTS IMPROVED NAUSEA. CALL LIGHT WITHIN REACH.
--- NOTE | 2019-08-01 15:17 | NUR ---
PT VOMITED 150ML GREEN CLOUDY EMESIS. ADMIN ZOFRAN 8MG IVP AND TORADOL 30MG IVP FOR N/V AND 5/10 ABD PAIN.
--- NOTE | 2019-08-01 15:50 | NUR ---
PT VOMITED 100ML OF GREEN EMESIS. PT CONTINUES TO REFUSE NG TUBE PLACEMENT. EDUCATION PROVIDED TO PT REGARDING N/V RELIEF. PT STATES "I'D RATHER VOMIT THAN HAVE A TUBE PUT BACK IN". WILL CONTINUE TO MONITOR.
--- NOTE | 2019-08-01 20:00 | NUR ---
REPORT RECEIVED FROM DAY SHIFT RN. PT LYING IN BED WATCHING TV, ALERT AND ORIENTED. FAMILY IN ROOM. NO QUESTIONS OR CONCERNS AT THIS TIME. CALL LIGHT IN REACH.
--- NOTE | 2019-08-01 20:25 | NUR ---
PT CALLED SAYING WAS THROWING UP. I WENT IN TO CHECK ON HIM. HE HAD 300 M EMISIS . I EMPTIED HIS OSTOMY BAG, AND IVY DRAIN PER HIS REQUEST. BEDSIDE TABLE AND CALL LIGHT IN REACH.
--- NOTE | 2019-08-01 22:00 | NUR ---
ASSESSMENT COMPLETE. EVENING MEDS GIVEN WITHOUT ISSUE. MEDICATED WITH PRN FOR 7/10 ABD PAIN. PRN NAUSEA ALSO GIVEN FOR VOMITING. MIDLINE INCISION DRESSING WITH SCANT AMOUNT OF DRAINAGE. IVY DRAINING SMALL AMOUNT OF SEROSANGUINEOUS FLUID. COLOSTOMY DRAINING DARK GREEN FLUID. BOWEL TONES HYPOACTIVE, LUNGS CLEAR. IV ABX INFUSING. AT BEDSIDE. CALL LIGHT IN REACH.
--- NOTE | 2019-08-01 23:09 | NUR ---
NG TUBE PLACED PER PROTOCOL WITHOUT ISSUE. PT SATISH WELL. CHEST XRAY OBTAINED AND COMPLETED, AWATING RESULTS. NGT CLAMPED AT THIS TIME.
--- NOTE | 2019-08-01 23:15 | NUR ---
NGT ADVANCED FURTHER, NEW CHEST X-RAY ORDERED.
--- NOTE | 2019-08-01 23:30 | NUR ---
ADVANCED NGT FURTHER, PT SATISH WELL. REPEAT CHEST XRAY ORDERED, AWAITING RESULTS.
--- NOTE | 2019-08-02 00:49 | NUR ---
NGT TO INTERMITTENT SUCTION. CONTINUES TO DRAIN DARK BROWN/RUST COLORED FLUID. PT IN NO APPARENT DISTRESS. CALL LIGHT IN REACH.
--- NOTE | 2019-08-02 02:41 | NUR ---
MEDICATED WITH PRN FOR 5/10 ABD PAIN. PT STATES HIS NAUSEA IS GETTING BETTER AND HE HAS NOT VOMITED SINCE SUCTION WAS STARTED. CALL LIGHT IN REACH.
--- NOTE | 2019-08-02 03:53 | NUR ---
PT RESTING IN BED WITH EYES CLOSED, RR EVEN AND UNLABORED. NGT PATENT. IVF INFUSING. IN ROOM. CALL LIGHT IN REACH.
--- NOTE | 2019-08-02 05:14 | NUR ---
PT RESTING IN BED WITH EYES CLOSED. RR EVEN AND UNLABORED. ASSESSMENT COMPLETE. BT HYPOACTIVE. NGT DRAINING BRICK RED FLUID. VS AND I&O COMPLETE. PT WITH PERSISTENT HICCUPS. STATES NAUSEA IS BETTER. DENIES PAIN AT THIS TIME. NO OTHER REQUESTS, CALL LIGHT IN REACH.
--- NOTE | 2019-08-02 05:39 | NUR ---
PT HAD A RESTLESS NIGHT. MULTIPLE EMESIS BEFORE NGT PLACEMENT. PERSISTENT HICCUPS. PAIN CONTROLLED WITH PRN DILAUDID. BT HYPOACTIVE. OSTOMY. IVY. MIDLINE INCISION COVERED WITH DRESSING, SM AMOUNT OF SHADOWING. IVF AND IV ABX. SCD'S. USES CALL LIGHT APPROPRIATELY.
--- NOTE | 2019-08-02 06:12 | NUR ---
THIS RN CALLED DR LINTON TO PROVIDE MD WITH PT UPDATE. NO ANSWER, LEFT VOICEMAIL TO CALL BACK RN.
--- NOTE | 2019-08-02 06:14 | NUR ---
IV ABX INFUSING. PT LYING IN BED WITH EYES CLOSED, NAD. CALL LIGHT IN REACH.
--- NOTE | 2019-08-02 06:42 | NUR ---
DR LINTON PROVIDED WITH PT UPDATE REGARDING NG PLACEMENT AND COLOR OF NG OUTPUT. DISCUSSED WITH MD THAT OUTPUT IS DARK BROWN/RUST BRICK IN COLOR, NO ABDULLAHI RED BLOOD NOTED. TOTAL OUTPUT 150MLS THIS SHIFT.CBC COMPLETED WITH RESULTS OF 12.0 AND 38.5. VVS THROUGHOUT SHIFT, 600 TOTAL EMESIS. CHEST X-RAY SHOWED NG TUBE IS IN GASTRIC FUNDUS AND THE PROXIMAL SIDEHOLE IS AT THE GASTROESOPHAGEAL JUNCTION AND SINCE THEN NG WAS ADVANCED ANOTHER 1 TO 1.5 INCHES. NO NEW ORDERS FROM MD AT THIS TIME.
--- NOTE | 2019-08-02 07:45 | NUR ---
PATIENT RESTING IN BED. PATIENT REFUSED WASH CLOTH FOR HANDS AND FACE AND REFUSED ORAL CARE. NO OTHER NEEDS AT THIS TIME. CALL BUTTON IN REACH.
--- NOTE | 2019-08-02 08:16 | NUR ---
Pt awake, a&ox4. Pt on ra, resp even and non labored. Pt anxious, states he had a "rough night". Pt reports nausea. Zofran 8mg ivp admin at this time. Tylenol 1000mg ivp admin for reports of 5/10 abd pain. NG intact, patent with dark brown, lisa colored output noted. Pt has no further needs at this time. at bedside sleeping.
--- NOTE | 2019-08-02 11:30 | NUR ---
ADMIN PHENERGAN 12.5MG FOR NAUSEA.
--- NOTE | 2019-08-02 11:49 | NUR ---
PT UP WITH HEAD PUMPER FOR WALK.
--- NOTE | 2019-08-02 12:05 | NUR ---
ADMIN DILAUDID 0.5MG IVP FOR REPORTS OF 7/10 ABD PAIN.
--- NOTE | 2019-08-02 13:07 | NUR ---
PATIENT STOOD UP AT SINK TO BRUSH TEETH AND WASH HANDS AND FACE. PATIENT ABULATED THE HALLWAY X 1 AND NOW SITTING UP IN CHAIR. RN IN ROOM CALL BUTTON IN REACH. NO OTHER NEEDS AT THIS TIME. PATIENT REFUSED FACE SHAVE.
--- NOTE | 2019-08-02 14:23 | NUR ---
PT SITTING IN CHAIR, WATCHING TV WITH NG TUBE. PT TOLERATING. GAVE ENCOURAGEMENT, AND REMINDED HIM HE COULD WALK ALSO. PT STATED HE HAD BEEN ON ON WALK. EXTENDED A BLESSING, WILL FOLLOW NEEDED G NG, BUT NOT TOO
--- NOTE | 2019-08-02 16:34 | NUR ---
ADMIN TYLENOL 1000MG IVP FOR REPORTS OF 6/10 ABD PAIN. PT REPORTS NAUSEA HAS IMPROVED. NO NEEDS AT THIS TIME.
--- NOTE | 2019-08-02 18:11 | NUR ---
Spoke with pt. He is resting with NG in place. States "it's been pretty tough". Denies any needs. No plan for dc at this time.
--- NOTE | 2019-08-02 20:00 | NUR ---
RECEIVED REPORT AT 1900, FOUND PT IN BED LOOKING MISERABLE BUT NOT SAYING SO. PT DENIED ANY NEEDS OR WANTS AT THAT TIME.
--- NOTE | 2019-08-02 22:42 | NUR ---
RECEIVED TELEPHONE ORDER FROM DR LINTON. VERIFIED ORDER USING THE READBACK METHOD.
--- NOTE | 2019-08-02 22:45 | NUR ---
AT ABOUT 2210 WITH THE FIRST SHIFT ASSESSMENT, IT WAS NOTED THAT THE NG TUBE WAS NOT DRAINING PROPERLY. NG TUBE WAS FLUSHED WITH 40MLS H2O BUT TO NO AVAIL. IT WAS ALSO NOTED THAT WHEN THE TUBE WAS DICONNECTED FROM THE ADAPTER PIECE, IT WAS DRAINING WELL WITH GRAVITY. SHORTLY AFTER THE TUBE FLUSHING, PT VOMITED 300MLS. MD LINTON WAS CALLED AT ABOUT 2230. I WAS INSTRUCTED TO ADVANCE THE TUBE SOME ( I DID BY 1 INCH) AND TO FLUSH MORE H2O THROUGH IT WHICH WAS TO NO AVAIL. CANISTER AND HOSE WERE CHANGED BUT STILL TO NO AVAIL. THEN THE ADAPTER PIECE WAS CHANGED WITH AN OLD ONE WHICH THIS HOSPITAL DOES NO LONGER CARRY AND THE NG-TUB STARTED TO DRAIN. IMMEDIATE OUTPUT WAS 700MLS. I HAD TO FLUSH THE NG TUBE A COUPLE OF TIMES BECAUSE OF THE CONSISTENCY OF THE GASTRIC CONTENT AND THERE WERE ALSO SOME CLOTS PRESENT. LOBES ARE CLEAR, ABD SOUNDS ARE PRESENT, NO PERIPHERAL EDEMA NOTED. PT NO FEELS MUCH BETTER PAIN AND NAUSEA RELATED.
--- NOTE | 2019-08-03 00:50 | NUR ---
NG TUBE IS STILL DRAINING. PT HAS NO NEEDS OR CONCERNS AT THIS TIME.
--- NOTE | 2019-08-03 02:05 | NUR ---
ABD SOUNDS ARE PRESENT. ILEOSTOMY IS PUTTING OUT BLACK LIQUID STOOL. NG TUBE IS STILL PUTTING OUT. PT DENIES PAIN AND N/V. MIDLINE ABD DRESSING IS D/I WITH SCANT SHADOWING. NO IVY DRAIN OUTPUT NOTED. WILL CONTIUE TO MONITOR.
--- NOTE | 2019-08-03 02:30 | NUR ---
AT THIS TIME PT IS DRY HEAVING. PHERERGAN IV TO BE GIVEN. NG TUBE SEEMS ONCE AGAIN SLUGISH. I FLUSHED IT BUT DID NOT GET MUCH RETURN ONCE AGAIN... WILL CONTINUE TO MONITOR.
--- NOTE | 2019-08-03 02:45 | NUR ---
LOBES HAVE SOME EXPIRATORY WHEEZING PRESENT, PT DENIES SOB. PT HAS UNCHANGED EDEMA IN LOWER LEGS, PT ALSO HAS SCROTAL EDEMA PRESENT. ABD SOUNDS ARE PRESENT AND ABD IS SOFT AND NON-TENDER TO TOUCH. WILL CONTINUE TO MONITOR.
--- NOTE | 2019-08-03 05:57 | NUR ---
patient used call light to request some ice. approved by RACH Helton. patient did not need anything further at this time.
--- NOTE | 2019-08-03 06:38 | NUR ---
AT ABOUT 2210 WITH THE FIRST SHIFT ASSESSMENT, IT WAS NOTED THAT THE NG TUBE WAS NOT DRAINING PROPERLY. NG TUBE WAS FLUSHED WITH 40MLS H2O BUT TO NO AVAIL. IT WAS ALSO NOTED THAT WHEN THE TUBE WAS DICONNECTED FROM THE ADAPTER PIECE, IT WAS DRAINING WELL WITH GRAVITY. SHORTLY AFTER THE TUBE FLUSHING, PT VOMITED 300MLS. MD LINTON WAS CALLED AT ABOUT 2230. I WAS INSTRUCTED TO ADVANCE THE TUBE SOME ( I DID BY 1 INCH) AND TO FLUSH MORE H2O THROUGH IT WHICH WAS TO NO AVAIL. CANISTER AND HOSE WERE CHANGED BUT STILL TO NO AVAIL. THEN THE ADAPTER PIECE WAS CHANGED WITH AN OLD ONE WHICH THIS HOSPITAL DOES NO LONGER CARRY AND THE NG-TUB STARTED TO DRAIN. IMMEDIATE OUTPUT WAS 700MLS. I HAD TO FLUSH THE NG TUBE A COUPLE OF TIMES BECAUSE OF THE CONSISTENCY OF THE GASTRIC CONTENT AND THERE WERE ALSO SOME CLOTS PRESENT. LOBES ARE CLEAR, ABD SOUNDS ARE PRESENT, NO PERIPHERAL EDEMA NOTED. PT NO FEELS MUCH BETTER PAIN AND NAUSEA RELATED. PT NEEDED NAUSEA PRN MEDS X2, PRN PAIN MEDS X1. WILL CONTINUE TO MONITOR. ABD MIDLINE DRESSING IS D/I WITH SCANT SHADOWING PRESENT. IVY-DRAIN HAD NO OUTPUT TO SPEAK OF, ILEOSTOMY HAS HAD BLACK LIQUID OUTPUT.
--- NOTE | 2019-08-03 10:26 | NUR ---
INSTRUCTED PT TO GET UP AND WALK IN HALLWAY TO HELP PREMOTE HEALING. PT STATES "NOT AT THIS TIME". I EDUCATED PT REGARDING PLAN OF CARE AND GOALS RELATED TO HEALING. PT STATES I CAN RETURN IN ONE HOURS TIME AND HE WILL THEN WALK. WILL COME BACK IN AN HOUR.
--- NOTE | 2019-08-03 13:30 | NUR ---
PT CURRENTLY HAS HICCUPS, HE REQUEST PAIN MEDICATIONS AT THIS TIME. DILAUDID 0.5MG IV PRN.
--- NOTE | 2019-08-03 14:26 | NUR ---
PT WAS SITTING UP IN BED WITH TV ON. PT ADMITTED THAT TODAY HAS BEEN A TOUGH DAY, AND THAT IT STARTED WIT LAST NIGHT. HAD A MOMENT TO VISIT, PT TRYING TO BE STRONG AND KEEP POSITIVE.PT HAS ANIMALS THAT HE FEELS HE NEEDS TO BE THERE FOR AND NG TUBE IS STILL PULLING FLUID UP. HE MENTIONED HIS MOTHER AND SISTER HAVE SAME PROBLEMS.STAFF IN TO CARE FOR PT WELL DR LINTON. WILL CONTINUE TO FOLLOW NEEDED
--- NOTE | 2019-08-03 16:19 | NUR ---
ADMIN TYLENOL 1000MG IVP FOR REPORTS OF 6/10 ABD PAIN.
--- NOTE | 2019-08-03 17:19 | NUR ---
FLUSHED NG TUBE WITH 40ML FREE WATER. PT TOLERATED WELL. GASTRIC CONTENT FREELY FLOWING INTO CANISTER, NO OBSTRUCTION NOTED.
--- NOTE | 2019-08-03 17:20 | NUR ---
Pt walking in the mancuso with PT. NG in place. Pt states it is rough going.
--- NOTE | 2019-08-03 20:00 | NUR ---
RECEIVED REPORT AT 1900, FOUND PT IN BED A BIT BETTER LOOKING OVERALL THAN LAST NIGHT. PT HAD NO NEEDS AT THIS TIME.
--- NOTE | 2019-08-03 23:07 | NUR ---
V/S ARE WDL, ALL LOBES ARE CLEAR, ABD SOUNDS ARE NOT PRESENT AT THIS TIME. PT DENIES NAUSEA, PAIN 10/10, IVY-DRAIN HAS NO OUTPUT STILL, ILEOSTOMY HAS BLACK THIN LIQUID PRESENT, NG-TUBE IS STILL PUTTING OUT A LOT OF FLUID. NO PERIPHERAL EDEMA NOTED. ABD MIDLINE INCISION IS D/I WITH A SCANT AMOUNT OF SHADOWING PRESENT. NO NEW CONCERNS NOTED AT THIS TIME.
--- NOTE | 2019-08-04 01:10 | NUR ---
PT APPEARS TO BE SLEEPING.
--- NOTE | 2019-08-04 02:28 | NUR ---
ABD SOUNDS ARE ABSENT, NO NEW CONCERNS WERE NOTED. NG-TUBE IS DRAINING WELL. PT DENIES PAIN/NAUSEA AT THIS TIME.
--- NOTE | 2019-08-04 03:38 | NUR ---
PT CALLED OUT NEEDING HELP WITH HIS NG-TUBE. PT WAS BLOWING HIS NOSE WHEN THE TAPE CAME OFF AND THE NG-TUB SLIPPED OUT ABOUT AND INCH OR SO. IT WAS RE-ADVANCED AND FASTEND WITH TAPE. NG TUBE DRAINING AGAIN.
--- NOTE | 2019-08-04 05:59 | NUR ---
NG TUBE IS STILL HAVING SIGNIFICANT RED AND BROWN OUTPUT. PT DID PULL OUT THE NG TUBE X2 BY ABOUT 2 INCHES. ABD SOUNDS HAVE BEEN ABSENT WITH ASSESSMENTS. AT ABOUT 0530 HOWEVER, GAS WAS NOTED IN HIS ILEOSTOMY. IVY-DRAIN HAS NO OUTPUT REALLY, ABD MIDLINE INCISION IS D/I WITH SOME SHADOWING PRESENT. NO PERIPHERAL EDEMA NOTED, ALL LOBES ARE CLEAR. PT THIS SHIFT RECEIVED X1 PRN DILAUDED AND ZOFRAN. NO NEW CONCERNS NOTED SO FAR THIS SHIFT. URINE OUTPTUT IS ADEQUATE SO FAR. ILEOSTOMY OUTPUT IS BLACK WITH GREENISH TINT.
--- NOTE | 2019-08-04 07:55 | NUR ---
0728: Pt resting in his bed and he states his pain is "better". NG in and functioning well. Dressing intact with some old drainage noted, Sonny in place. Call joiner within reach. Report received from Sunitha LOYD.
--- NOTE | 2019-08-04 08:32 | NUR ---
PT RESTING IN HIS BED AND STATES HE FEELS "MUCH BETTER". HE DENIES ANY PAIN AT THIS TIME. NO BOWEL SOUNDS HEARD BUT THE PT STATES HE PASSED SOME GAS THIS AM AND THERE IS A SCANT AMOUNT OF STOOL IN HIS ILISTOMY BAG. HE DENIES ANY NEW PROBLEMS AND HIS NG CONTINUES FUNCTIONING WELL.
--- NOTE | 2019-08-04 09:52 | NUR ---
PATIENT RESTING IN BED. IN ROOM. VITAL SIGNS AND I&O DONE. CALL LIGHT WITHIN REACH. NO OTHER NEEDS AT THIS TIME
--- NOTE | 2019-08-04 10:10 | PATH ---
[facility] [address], [place] [address] Signed SPECIMEN(S): A SIGMOID COLON SPECIMEN SOURCE: A. SIGMOID COLON CLINICAL HISTORY: Free air in abdomen. Possible ruptured diverticula, perforated diverticulum. FINAL PATHOLOGIC DIAGNOSIS: Colon, sigmoid, resection: - Diverticulosis and diverticulitis with associated abscess formation. - Acute serositis and fibrous adhesions. - One lymph node with no evidence of malignancy. - See comment. COMMENT: Sections demonstrate multiple well-formed diverticula extending to the pericolonic soft tissue. One of the sampled diverticulum demonstrates associated abscess formation containing polarizable foreign material; the abscess is contained within the pericolonic soft tissue. Acute serositis is seen throughout the specimen and polarizable foreign material is present within the serosal inflammation, suggesting previous rupture. The surgical margins are uninvolved. No dysplasia or malignancy is identified. NAL:cml:C2NR MICROSCOPIC EXAMINATION: Histologic sections of all submitted blocks are examined by light microscopy. These findings, together with the gross examination, support the pathologic diagnosis. GROSS DESCRIPTION: The specimen is received in a formalin filled specimen container labeled "LR, A". A previously opened, unoriented segment of large bowel is 20 cm in length and has an external diameter which averages 3 cm. The smooth bingham serosa has scant areas of hemorrhage and focal adherent fibropurulent exudate over a central area of approximately 4.5 cm. The attached pericolic fat averages 3 cm. The bowel mucosa is bingham and has the usual folds without polyp, mass or area of ulceration. Cross sectioning reveals multiple deep, well-formed diverticula. There is no grossly appreciated diverticula defect PATIENT NAME: ELODIA BUSH SR PATHOLOGY DATE OF : 54 REPORT #: [id number] PHYSICIAN: [facility] PCP: JASON MENDOZA MD REPORT IS CONFIDENTIAL AND NOT TO BE RELEASED WITHOUT AUTHORIZATION [facility] [address] [id number] Signed or associated pericolic abscess cavity. Sectioning through the attached pericolic fat reveals vazquez-bingham, tentatively identified lymph nodes up to 0.6 cm. Summary of sections: Y9-H3-[id number] sampled diverticula A5-single randomly sampled pericolic lymph node A6-outbound telemarketing representative sections of margins, per Dr. Mack's request. GW (under the direct supervision of a pathologist) The Gross Description was prepared using a voice recognition system. The report was reviewed for accuracy; however, sound-alike word errors, addition and/or deletions may occur. If there is any question about this report, please contact Client Services. PERFORMING LABORATORY: The technical component was performed by [id number] [address] (Agriculture Worker: Meg Medina MD; CLIA# [id number]). [facility] [address] [address] (Agriculture Worker: Haile Ramachandran MD; CLIA# [id number]). Diagnostician: Macarena Mack MD Pathologist Electronically Signed 08/04/2019 Copies: ~ PATIENT NAME: ELODIA BUSH SR PATHOLOGY DATE OF : 54 REPORT #: [id number] PHYSICIAN: [facility] PCP: JASON MENDOZA MD REPORT IS CONFIDENTIAL AND NOT TO BE RELEASED WITHOUT AUTHORIZATION
--- NOTE | 2019-08-04 10:48 | NUR ---
PT STATES HIS PAIN IS UNDER GOOD CONTROL AT THIS TIME. NGT FLUSHED WITH 30ML OF WATER GENTLY AND FLUSED WITHOUT ANY DIFFICULTY. NGT DRAINING DARK BLACK/BROWN DRAINAGE.
--- NOTE | 2019-08-04 12:33 | NUR ---
DR DARNELL CALLED AND HE IS AWARE OF THE AMOUNT OF DRAINAGE COMING OUT OF THE NG TUBE. HE STATES HE STILL WISHES TO HAVE IT DC'D.
--- NOTE | 2019-08-04 12:38 | NUR ---
NG TUBE DC'D ORDERED. ELODIA TOLERATED THE DC WELL AND STATES HE FEELS "BETTER" AFTER HAVING THE NG PULLED OUT.
--- NOTE | 2019-08-04 12:55 | NUR ---
PT RESTING IN HIS CHAIR AND DENIES PAIN OR NAUEA AT THIS TIME.
--- NOTE | 2019-08-04 13:35 | NUR ---
PATIENT SITTING UP IN CHAIR. AND BROTHER IN ROOM. VITAL SIGNS AND I&O DONE. CALL LIGHT WITHIN REACH. NO OTHER NEEDS AT THIS TIME
--- NOTE | 2019-08-04 13:57 | NUR ---
PT SITTING IN CHAIR, MASONRY TEACHER HAD JUST TAKEN NG TUBE OUT.EXTENDED A BLESSING AND STAFF IN TO CONTINUE CARE
--- NOTE | 2019-08-04 14:24 | NUR ---
PT RESTING IN HIS CHAIR AND HE IS EATING A POPCILE AND HE CONTINUES TO DENIE ANY NAUSEA. HE STATES HIS PAIN IS A 6 WHICH IS TOLERABLE AND HE DENIES THE NEED FOR ANY PAIN MEDICATION. PT STATES HE WILL GO FOR A WALK SHORTLY.
--- NOTE | 2019-08-04 15:54 | NUR ---
ELODIA DENIES ANY PAIN OR NAUESA. HE STATES THAT HE IS JUST TIRED HE HAS "NOT BEEN GETTING ANY SLEEP". HE STATES HE JUST AWOKE FROM ABOUT AN HOUR NAP. HE DECLINES TO GO FOR A WALK AT THIS TIME.
--- NOTE | 2019-08-04 16:14 | NUR ---
Pt. sleeping, not awakened.
--- NOTE | 2019-08-04 16:21 | NUR ---
PT STATES HE HAS A LITTLE BIT OF NAUSEA AND HE WAS MEDICATED ORDERED, SEE EMAR.
--- NOTE | 2019-08-04 17:01 | NUR ---
PATIENT RESTING IN BED. IN ROOM. VITAL SIGNS AND I&O DONE. CALL LIGHT WITHIN REACH. NO OTHER NEEDS AT THIS TIME
--- NOTE | 2019-08-04 17:45 | NUR ---
PT STATES HIS PAIN IS UNDER CONTROL AT A 4/10 WHICH HE STATES IS ACCEPTABLE. HE DENIES ANY NAUSEA AT THIS TIME. PT NOW REQUESTED TO HAVE THE LIGHTS OFF HE WISHES TO GO TO SLEEP AT THIS TIME.
--- NOTE | 2019-08-04 18:45 | NUR ---
PT'S OSTOMY SITE LEAKED GREEN DRAINAGE UNDER HIS SURGICAL DRESSING, DOWN HIS ABD AND ON HIS BED. DR DARNELL CALLED AND NOTIFIED AND AN ORDER WAS GIVEN TO REMOVE THE DRESSING, CLEAN THIS SITE AND LEAVE THE DRESSING OFF. THIS WAS DONE AND THE SITE APPEARS HEALTHY WITH STERI-STRIPS IN PLACE. THE OSTOMY WAFFER WAS ALSO CHANGED IT WAS ALSO SOAKED IN DRAINAGE. THE PT TOLERATED THIS WELL AND HIS BEDDING WAS CHANGED.
--- NOTE | 2019-08-04 20:16 | NUR ---
ROUNDED CHARGE. PATIENT IS RESTING IN BED. [facility]. PATIENT DENIES ANY AOMMENTS, QUESTIONS, OR CONCERNS. NO NEEDS NOTED. PRESENT IN THE ROOM. CALL LIGHT IN REACH.
--- NOTE | 2019-08-04 20:44 | NUR ---
no c/o pain or s/e /sx iv abx. coop with instructions r/t R ostomy care/
--- NOTE | 2019-08-04 22:33 | NUR ---
c/o R abd 04/24 pain. Medicated with Dilaudid 0.5mg IV. IVf infusing. Instructed on emptying/care of R stoma. Cooperative. Family in room
--- NOTE | 2019-08-04 23:30 | NUR ---
Pt did hands on emptying stoma, still unable to close stoma bag pin.
--- NOTE | 2019-08-05 00:30 | NUR ---
pt empied 100cc drainage from ileostomy, still having trouble placing pin back.
--- NOTE | 2019-08-05 01:50 | NUR ---
c/o 03/24 abd pain. Medicated with Dilaudid 0.5mg IV. Stoma emptied of 250cc dark liquid bm, tolerating liquids well. repositions self in bed
--- NOTE | 2019-08-05 05:06 | NUR ---
VITALS AND I&OS DONE AND CHARTED. BEDSIDE TABLE AND CALL LIGHT IN REACH. PT NEEDS NOTHING MORE AT THIS TIME.
--- NOTE | 2019-08-05 06:31 | NUR ---
PT HAS SLEPT 3-4 HRS THIS SHIFT. ON ROOM AIR, CURRENTLY RESTING, AWAKES EASILY. mID LINE ABD INCISION WELL APPROXIMATED, SS REPLACED AND COVERED WITH OPSITE AT BEGINING OF SHIFT DUE TO GETTING SOILED WITH BM 2-3 TIMES AFTER ILEOSTOMY LEAKAGE. AREA WAS CLEANSED WITH CHLORHEXIDINE WIPES. ACTIVE BOWEL TONES. STOMA DRAINING LARGE AMOUNTS OF LIQUID BM. SELF CARE TEACHING DONE, DID HANDS ON, CONTINUES TO REQUIRE TEACHING AND MORE HANDS ON, WAS COOP. IVF INFUSING, USING CALL LIGHT APPROPRIATELY, TOLERATING CLEAR LIQUIDS. SCDS FAMILY IN ROOM.
--- NOTE | 2019-08-05 07:00 | NUR ---
BEDSIDE HANDOFF REPORT RECEIVED FROM NUCLEAR OPERATOR RN. PT RESTING IN BED, RECEIVING IV DILAUDID, RATING PAIN 8/10. PT DENIES OTHER NEEDS AT THIS TIME.
--- NOTE | 2019-08-05 08:41 | NUR ---
REASSESSED PAIN STATUS BETWEEN 0800 AND 0830 AFTER IV DILAUDID GIVEN AT 0703. PATIENT REPORTS PAIN DECREASED FROM 8/10 TO 4/10. HE IS CURRENTLY EATING BREAKFAST AND VISITING WITH FAMILY.
--- NOTE | 2019-08-05 09:55 | NUR ---
PT RESTING IN BED. PT ON ROOM AIR, LUNG SOUNDS CLEAR. PAIN IMPROVED AFTER DILAUDID THIS AM, PT APPEARS COMFORTABLE. BOWEL TONES ACTIVE, ILEOSTOMY WITH DARK GREEN STOOL. PT HAD TOAST AND MILK THIS AM, TOLERATED WELL DENIES NAUSEA. MIDLINE INCISION WITH STERISTRIPS IN PLACE. CMS INTACT, WITHOUT EDEMA. DISCUSSED PLAN OF CARE FOR THE DAY. PT DENIES OTHER NEEDS AT THIS TIME.
--- NOTE | 2019-08-05 11:13 | NUR ---
PATIENT AMBULATED IN [place], THREE LAPS AROUND UNIT TO TRY AND EASE ABDOMINAL PAIN. PATIENT GIVEN 0.5MG IV DILAUDED, 600MG PO MOTRIN, ACETMAMINOPHEN 1000MG PO FOR PAIN RATING 7/10 AFTER RETURNING TO ROOM. PATIENT IS NOW RESTING QUIETLY WITH FAMILY IN ROOM.
--- NOTE | 2019-08-05 11:37 | NUR ---
PATIENT REPORTS PAIN AT 0/10 AFTER RECIEVING DILAUDID. DECLINED OFFER TO ORDER LUNCH AND REPORTING NO APPETITE, WILL CALL IF MIND CHANGES.
--- NOTE | 2019-08-05 11:51 | NUR ---
PT APPEARS TO BE FEELING MUCH BETTER. OUT AMBULATING IN [place] WITH STUDENT. HE EVEN HAS A SMILE ON HIS FACE. WILL CONTINUE TO FOLLOW NEEDED
--- NOTE | 2019-08-05 14:18 | NUR ---
IV SITE #3, NORMALLY SALINE LOCKED, CURENTLY IN USE FOR ANTIOBIOTIC.
--- NOTE | 2019-08-05 14:35 | NUR ---
PT ASKING ABOUT DISCHARGE PLANNING, DSICUSSED BARRIERS TO DISCHARGE, EDUCATED ON DIET AND ORAL INTAKE OF FLUIDS, PAIN CONTROL AND ILEOSTOMY CARE. PT WILLING TO CONTINUE EMPTYING POUCH AND WILL ATTEMPT APPLIANCE CHANGE WHEN NEEDED NEXT. DR. DARNELL CALLED FOR ORDER FOR SHOWER, OK TO SHOWER.
--- NOTE | 2019-08-05 16:07 | NUR ---
PATIENT AMBULATED IN BRAMAN, PERFOMRING 6 LAPS AROUND UNIT WITH NO COMPLAINTS OF PAIN OR WEAKNESS. PATIENT IS EMPTYING HIS OWN OSTOMY, WITH OCCASIONAL TROUBLE CLOSING THE BAG. LEAKAGE WAS PRESENT AND DRESSING CHANGED PERFORMED OVER SOILED IVY GAUZE. SHOWER DEFERRED PER PATIENT UNTL CLOSE TO 1700.
--- NOTE | 2019-08-05 16:10 | NUR ---
PT WITH LEAKING FROM OSTOMY BAG CONNECTION TO APPLIANCE, SITE ASSESSED, NO LEAKING FROM APPLIANCE. PT WILLING TO SHOWER AROUND 1630, DISCUSSED POSSIBILITY OF DRESSING CHANGE AFTER SHOWER IF APPLIANCE BEGINS LEAKING, PT AGREEABLE TO ATTEMPT APPLIANCE CHANGE IF NEEDED. PT DENIES OTHER NEEDS AT THIS TIME.
--- NOTE | 2019-08-05 17:50 | NUR ---
PT ON ROOM AIR, LUNG SOUNDS CLEAR. PT TOLERATING REGULAR DIET, TAKING THINGS SLOWLY, BOWEL TONES ACTIVE, ILEOSTOMY WITH OUTPUT. PT WALKED IN BURTON SEVERAL LAPS. PT PAIN WELL CONTROLLED WITH TYLENOL AND MOTRIN, RECEIVED IV DILAUDID X2 THIS AM. CMS INTACT. IV FLUIDS INFUSING AT 50ML/HR. PT VOIDING QS.
--- NOTE | 2019-08-05 17:52 | NUR ---
PATIENT FINISHING LAST HALF OF DINNER SANDWHICH AND VISITING WITH . WAS UP TO SHOWER AND IS NOW BACK IN BED TO REST. DRESSING CHANGE PERFORMED AROUND IVY DRAIN. NO COMPLAINTS OF PAIN OR DISCOMFORT AT THIS TIME.
--- NOTE | 2019-08-05 18:11 | NUR ---
PATIENT IS WORKING ON MAKING TRANSITIONS TO GO HOME IN THE NEXT DAY OR TWO. HE HAS BEEN ACTIVELY TRYING TO EMPTY HIS OWN OSTOMY THROUGHOUT THE DAY, ONLY NEEDING HELP OCCASIONALLY TO CLOSE THE BAG. HE HAS ABMULATED IN THE BURTON TWICE THROUGHOUT THE SHIFT, COMPLETING A TOTAL OF 9 LAPS AROUND THE UNIT. PATIENT RECIEVED IV DILAUDID, PO ACETAMINOPHEN, AND PO MOTRIN AT 1100 AND 1830 FOR PAIN RATED AT A 7, PAIN WAS REDUCED TO A 4 OR LESS AFTER EACH DOSE. PATIENT WAS UP TO SHOWER AND SHAVE. DRESSING SURROUNDING IVY DRAIN CHANGED TWICE DURING SHIFT, FROM ONE OSTOMY LEAK AND THEN POST SHOWER. HE IS CURRENTLY RESTING QUIETLY IN HIS ROOM WHILE VISITING WITH HIS . PLAN OF CARE IS TO PROMOTE OSTOMY INDEPENDENCE, AND WORK ON PAIN MANAGMENT THROUGH PO NON NARCOTICS A REQUIREMENT TO GO HOME. PATIENT SHOULD BE ENCOURAGED TO PARTICIPATE IN CHANGING HIS OWN OSTOMY DRESSING AT TIME OF NEXT DRESSING CHANGE.
--- NOTE | 2019-08-05 20:29 | NUR ---
COOP WITH ASSESSMENT
--- NOTE | 2019-08-05 23:56 | NUR ---
Eyes closed, IVF infusing, pt did own stoma care earlier. call light at bedside
--- NOTE | 2019-08-06 02:01 | NUR ---
Pt awakes easily, voiding large amount of light beatrice colored urine, stoma emptied by him, continues to have trouble pressing down the clip. IVF infusing w/o problems. no c/o pain. abd incision intact, lyndon with scant amount of serous drainage
--- NOTE | 2019-08-06 04:29 | NUR ---
medicated with 1 norco c/o 01/22 abd pain
--- NOTE | 2019-08-06 04:49 | NUR ---
Pt has slept well this shift. Was medicated x1 with 1 [place] with good pain relief for abd pain. Midline abd incision w ss covered with opsite in place, IVY patent with scant amount of serous drainage. R Ileostomy patent draining liquid bm. Pt did own pardo very well, praised for his efforts. Tolerating diet well, no c/o n/v scds off as pt moves legs very frequently in bed. IVf infusing w/o problems, no c/o adverse reaction to abx. Voiding dark yellow urine at this time QS. Family in room, call lihgt at bedside
--- NOTE | 2019-08-06 07:10 | NUR ---
BEDSIDE HANDOFF REPORT RECEIVED FROM PAIN MANAGEMENT NURSE RN. PT RESTING IN BED. PT IN GOOD SPIRITS TODAY, VOICING HOPE TO DISCHARGE TODAY, DISCUSSED THAT DR. LINTON WILL ROUND ON HIM AND MAKE DECISION ABOUT DISCHARGE. PT DENIES OTHER NEEDS AT THIS TIME.
--- NOTE | 2019-08-06 09:15 | NUR ---
PT RESTING IN BED. PT ON ROOM AIR LUNG SOUNDS CLEAR. BOWEL TONES ACTIVE, DENIES NAUSEA, TOLERATED SMALL BREAKFAST, CONTINUES TO TAKE INTAKE SLOWLY. CMS INTACT, WITHOUT EDEMA. MIDLINE INCISION WITH STERISTRIPS AND OPSITE, WITHOUT REDNESS. IVY TO LEFT SIDE WITH SEROUS DRAINAGE. ILEOSTOMY WITH SMALL LEAK, PLAN FOR PT TO CHANGE APPLIANCE WITH NURSING ASSISTANCE. DISCUSSED PLAN OF CARE, PT CONTNUES TO HOPE TO DISCHARGE TODAY.
--- NOTE | 2019-08-06 09:30 | NUR ---
PT WITH OSTOMY LEAKING, PT ASSISTED WITH OSTOMY APPLIANCE CHANGE, DISCUSSED PRODUCTS AND HOW TO USE THEM. PT ABLE TO APPLY SKIN PROTECTANT, WAFFER, AND BAG. ALL QUESTIONS ANSWERED. PT FEELS COMFORTABLE WITH OSTOMY CHANGE WITH HOME HEALTH. PT DENIES OTHER NEEDS AT THIS TIME.
--- NOTE | 2019-08-06 09:45 | NUR ---
SPOKE WITH PATIENT AND SIG OTHER IN ROOM. DISCUSSED POSSIBLE DISCHARGE PLAN IN HOW TO GET HIM SUPPORT FOR OSTOMY CARE. HE STATES HE CHANGED APPLIANCE WITH NURSES AND FEELS ABLE TO DO THIS. PATIENT ADAMENT HE WANTS TO GO HOME. DISCUSSED POSSIBLE HOME HEALTH, OR STAYING HERE FOR A FEW DAYS FOR TRANSITIONAL CARE BED, OR OUTPATIENT ORDERS FOR A WOUND CLINIC. PATIENT STATES HE DOES NOT WANT TO STAY ANY LONGER IN THE HOSPITAL. HE STATES HE IS GOING HOME TO HIS HOUSE IN [place]. DISCUSSED HOME CARE VS WOUND CLINIC. HE STATES HE WOULD LIKE HOME CARE FOR AWHILE. WE DISCUSSED IT MIGHT NOT TAKE BUT A COUPLE WEEKS TO FEEL HE HAS A GOOD GRASP ON ANY ISSUES WITH THE OSTOMY. HE IS AGREEABLE TO THIS. DISCUSSED WHAT IT WOULD MEAN FOR HOME BOUND STATUS. HE STATES HE ISN'T GOING TO GO "RUNNING AROUND" THAT HE JUST WANTS TO BE IN HIS OWN HOUSE AND REST. QUESTIONS ANSWERED. WILL CONTINUE TO FOLLOW.
--- NOTE | 2019-08-06 10:09 | NUR ---
PATIENT IS NOW RESTING QUIETLY WHILE VISITING WITH AFTER BREAKFAST. HE HAS PARTICIPATED IN OSTOMY DRESSING CHANGE AND WAS VERY ENGAGED IN THE TEACHING PROCESS. IV SITE BEING USED FOR CONTINUOUS INFUSION INFILTRATED AND WAS REMOVED. REMAINING IV SITE NOW BEING USED FOR CONTINUOUS INFUSION, BEING STOPPED FOR IV ANTIOBIOTICS NEEDED. PATIENT DECLINES PAIN AT THIS TIME, REPORTING PAIN LEVEL AT A 0. CALL LIGHT AND PERSONAL BELONGINGS WITHIN REACH. PATIENT STATES HE WILL CALL IF NE NEEDS ANYTHING.
--- NOTE | 2019-08-06 11:14 | NUR ---
PATIENT VISITING WITH FAMILY AND DECLINES PAIN AT THIS TIME. REPORTS "FEELING REALLY GOOD" ABOUT HIS SITUATION AND THAT HE FEELS HE KNOWS HOW TO MANAGE HIS CONDITION.
--- NOTE | 2019-08-06 11:30 | NUR ---
SPOKE WITH DR LINTON. HE STATES HE IS NOT GOING TO DISCHARGE PATIENT TODAY. HE STATES HE MIGHT GO HOME OVER THE WEEKEND. DISCUSSED THAT PATIENT IS REQUESTING HOME HEALTH OUT OF [place]. HE STATES HE IS AGREEABLE TO THIS PLAN AND WILL FILL OUT ORDERS.
--- NOTE | 2019-08-06 12:28 | NUR ---
PT TO BE DC'D TODAY. PT IS GRACIOUS AND THANKFUL FOR CARE HE HAS RECEIVED AND IN HIS OWN WORDS FOR BLESSINGS I AM NOT WORTHY OF. HAD POSITIVE TIME, SEEMS MUCH MORE COMFORTABLE TODAY. PT REQUESTED PRAYER, WILL FOLLOW NEEDED
--- NOTE | 2019-08-06 14:46 | NUR ---
PT GIVEN FLAGYL PO PER ORDER, EDUCATED ON TAKING MEDICATION WITH FOOD TO PREVENT GI UPSET. TYPE AND SCREEN COLLECTED, AWAITING UNITS TO BE READY FOR TRANSFUSION. PT DENIES OTHER NEEDS AT THIS TIME.
--- NOTE | 2019-08-06 16:30 | NUR ---
SCANNED ORDER, FACE TO FACE AND CHART NOTES TO TIKA AT [facility]. SPOKE WITH HER ON THE PHONE AND EXPLAINED ADDRESS FOR PATIENTS BRANDY MCMANUS AND HIS CELL ARE ON FRONT OF FAX COVER. EXPLAINED PATIENT WILL NOT BE DISCHARGED UNTIL SOMETIME OVER WEEKEND. SHE STATES UNDERSTANDING.
--- NOTE | 2019-08-06 17:18 | NUR ---
BLOOD TRANSFUSION 1 OF 2 STARTED, DOUBLE RN VERIFICATION WITH SHERICE LOYD. THIS RN REMIANINED WITH PT DURING FIRST 15 MINUTES OF TRANSFUSION. PT WITHOUT S/S OF TRANSFUSION REACTION.
--- NOTE | 2019-08-06 17:54 | NUR ---
PT DID WELL WITH ILEOSTOMY SELF CARE. IVY REMOVED BY DR. LINTON. PT TOLERATING REGULAR DIET. PAIN WELL CONTROLLED WITH MORTIN AND NORCO X1. BLOOD TRANSFUSION 1 OF 2 STARTED, PT TOLERATIGN WELL THUS FAR. VOIDING QS. PLAN FOR DC TOMORROW.
--- NOTE | 2019-08-06 19:29 | NUR ---
TRANSFUSION 1 OF 2 COMPLETED. PT TOLERATED WELL, NO S/S OF TRANSFUSION REACTION. IV FLUSHED. VSS.
--- NOTE | 2019-08-06 19:45 | NUR ---
2ND UNIT OF PRBC SARTED #[id number], PT AWARE TO NOTIFY NSG STAFF OF ADVERSE REACTION TO BLOOD INFUSION. COOP WITH ASSESSMENT. ON ROOM AIR, MIDLINE ABD INCISION EDGES WELL APROX, SS IN PLACE, COVERED WITH OPSITE. DRESSING L IVY REMOVAL AREA. R ILEOSTOMY BAG PATENT. PT DOES OWN SELF CARE WITH MINIMUM OF ASSIST. PRAISED FOR EFFORTS. ON REGULAR DIET. DENIES C/O ABD PAIN AT THIS TIME, AT BEDSIDE
--- NOTE | 2019-08-06 19:45 | NUR ---
charge rounding note. travel writer in room to verify blood products with primary rn. pt and friend at bedside deny questions or concerns at this time. white board updated. primary rn remains in room.
--- NOTE | 2019-08-06 21:01 | NUR ---
Awake, watching tv, no c/o adverse reaction to abx. PRBC infusing w/o problems.
--- NOTE | 2019-08-06 23:12 | NUR ---
2244 - 2ND UNIT OF PRBC COMPLETED, PT DENIES C/O ADVERSE REACTION TO INFUSION. 2299 - NO C/O PAIN, EMPTIED OWN STOMA, MUCHIMPROVEMENT SEEN, PRAISED FOR EFFORTS, SIGNIFICANT OTHER HELPING WITH PROCEDURE. TOLERATING DIET WELL, NO C/O N/V, NO C/OPAIN. 2311 - TURNS SELF IN BED, NO C/O PAIN. ABD INCISION W/O CHANGES, STOMA PATENT, NO CHANGES, NO C/O ADVERSE REACTION TO BLOOD TRANSFUSION, VOIDING QS. PT IN ROOM AIR, COOPERATIVE [facility] VITALS AND ASSESSMENT. SIGNIFICANT OTHER ROOMING IN
--- NOTE | 2019-08-07 00:42 | NUR ---
On room air, no c/o pain, does own stoma care. call light at bedside. Repositions self in bed
--- NOTE | 2019-08-07 02:10 | NUR ---
PT AWAKES EASILY, UP TO BR W/O HELP, DOING OWN STOMA CARE. MEDICATED WITH IBUPROFEN 600MG PO 2/10 ABD PAIN. ON ROOM AIR, NO C/O SIDE EFFECTS TO BLOOD TRANSFUSION
--- NOTE | 2019-08-07 04:14 | NUR ---
PT CURRENTLY RESTING.pT RECEIVED A TOTAL OF 2 UNITS OF PRBC,NO C.O ADVERSE REACTION TO INFUSION. RECEIVING PO FLAGYL AND CARAFATE. WAS MEDICATED WITH 1 IBUPROFEN 600MG PO C/O ABD PAIN. EFFECTIVE. MIDLINE ABD INCISION WITH SS AND COVERED WITH OPSITE. R STOMA PATENT, PT DOES OWN CARE, DOING VERY WELL
--- NOTE | 2019-08-07 07:10 | NUR ---
HANDOFF REPORT RECEIVED FROM WATER/WASTEWATER PROJECT ENGINEER RN.
--- NOTE | 2019-08-07 08:50 | NUR ---
PT RESTING IN BED. PT FEELING MUCH BETTER TODAY, HOPING TO DISCHARGE TODAY, DISCUSSED DISCHARGE PLAN. PT ON ROOM AIR, LUNG SOUNDS CLEAR. PT DENIES PAIN AT THIS TIME, DISCUSSED MOTRIN AND PT AGREEABLE TO TAKE MOTRIN TO PREVENT SEVERE PAIN. PT DENIES NAUSEA, BOWEL TONES ACTIVE. ILEOSTOMY WITH OUTPUT, PT HAS BEEN INDEPENDENT WITH EMPTYING BAG. MIDLINE INCISION WITH STERISTRIPS AND OPSITE. IVY INSERTION SITE HEALING WELL, WITHOUTE DRAINAGE OR REDNESS, OPEN TO AIR. PT ASSISTED TO ORDER BREAKFAST. PT ENCOURAGED TO WALK IN [place] AGREEABLE AND WALKING WITH .
[2019-08-07] MEDS ORDERED: LEVOFLOXACIN500 MG PO (10:08)
[2019-08-07] MEDS ORDERED: METRONIDAZOLE250 MG PO (10:08)
[2019-08-07] MEDS ORDERED: SUCRALFATE1 GM PO (10:11)
[2019-08-07] MEDS ORDERED: TYLENOL EXTRA500 MG PO (10:12)
[2019-08-07] MEDS ORDERED: IBUPROFEN600 MG PO (10:12)
--- NOTE | 2019-08-08 11:29 | DS ---
[facility] [address], [place] [address] Signed ADMISSION DATE: 07/28/2019 DISCHARGE DATE: 08/07/2019 REASON FOR ADMISSION: This 69-year-old black man is admitted to the hospital upon presentation to emergency room having a month of mid abdominal pain. Evaluation in the emergency room included a CT scan of the abdomen showing scattered small bubbles of air throughout the abdomen, considered extraintestinal. The origin was uncertain, though he does have diverticulosis scattered throughout the entire colon. The location of the free air included the upper abdomen and no clear evidence of perforated ulcer, though uncertain of course. He is admitted for further evaluation and care. PERTINENT PHYSICAL EXAMINATION: GENERAL: Showed a relatively thin black man who did not appear to be in severe distress by any means. He did not appear systemically toxic particularly. VITAL SIGNS: Initial temperature was 100.2, pulse of 89, blood pressure 122/76. ABDOMEN: Flat and nondistended. There is minimal tenderness in the abdomen. No focal tenderness and no peritonitis clearly. LABORATORY DATA: White cell count was 6.4, hematocrit 39.8, platelets 274,000, neutrophils 83.6%. Chem profile normal. Lactic acid 1.2. Liver enzymes normal. Lipase 17. Urinalysis essentially normal. HOSPITAL COURSE: The patient was admitted with the diagnosis of perforated viscus, probably diverticular without generalized free air, but with air bubbles distributed throughout the abdomen. He did not have systemic toxicity, but he was maintained with broad-spectrum antibiotics. The possibility of a localized perforation of diverticulitis was considered most likely and given his clinical picture, IV antibiotic administration was deemed possible to allow for complete resolution. Although, he was clinically remaining reasonably symptom free, he did have temperature elevation to 101, particularly at night. On the basis of his uncertain diagnosis, a CT scan was repeated with GI contrast, which showed a marked amount of more free air and numerous diverticula and although still uncertain as to the source of perforated viscus, most likely was diverticular. On that basis, he underwent laparotomy on July 30, 2019. This confirmed an abscess in the left lower abdomen, not previously visible on the CT scan, but related to perforated diverticulitis. Extensive diverticular disease was noted. He underwent left colectomy with a side-to-end coloproctostomy and a diverting protective loop ileostomy. This was deemed more appropriate approach than a Elma's procedure and future takedown of colostomy requiring more colonic and pelvic dissection. Electronically Signed By: CHRYSTAL LINTON MD 08/08/19 1129 PATIENT NAME: ELODIA BUSH SR DISCHARGE SUMMARY DATE OF : 54 REPORT #: [id number] PHYSICIAN: CHRYSTAL LINTON MD PCP: JASON SANTAMARIA MD REPORT IS CONFIDENTIAL AND NOT TO BE RELEASED WITHOUT AUTHORIZATION [address] [address] Signed The pericolic abscess was drained as well, of course. He initially did quite well and was advanced to liquids and maintained on minimal opiate medication. A TAP block had been undertaken at time of operation. The patient had distention and vomiting, but refused nasogastric tube placement. Abdominal x-ray showed findings highly suggestive of ileus. He ultimately did allow for nasogastric tube decompression, which was beneficial. Notably, his ileostomy had prompt recovery and return of function of dark bilious fluid. The nasogastric tube did show some findings suggestive of some bleeding, likely trauma related. He was maintained with intravenous fluids and nasogastric tube decompression and ultimately had recovery of his bowel function. He did drop his hematocrit ultimately to 22 and was transfused 2 units of packed red cells prior to discharge. By day of discharge, he is ambulating well, tolerating a solid diet, and hematocrit is 28.1. Notably, the abscess that was drained at time of operation showed strep faecalis (Enterococcus faecalis) for which Levaquin and Flagyl antibiotics were initiated. At the time of discharge, his wound is healing well. The ileostomy is working well and he is feeling much better. Our long-term plan is for a contrast study to assess the coloproctostomy and, if without sign of leakage or other problem, takedown of the ileostomy. DISCHARGE MEDICATIONS: 1. Levaquin 500 mg p.o. daily, #5. 2. Flagyl 250 mg p.o. t.i.d., #15. 3. Ibuprofen 600 mg p.o. q.6 hours as needed for pain, #30. 4. Tylenol 1000 mg p.o. q.6 hours as needed for pain, #60. 5. Carafate 1 g p.o. q.a.c. and h.s. on empty stomach, #120. He will also continue his usual medicines of: 1. Amlodipine 10 mg p.o. daily. 2. Aspirin 81 mg p.o. daily. 3. Vitamin C 1000 mg tablet daily. 4. Multivitamin including lycopene one tablet p.o. daily. 5. Calcium carbonate 600 mg p.o. daily. 6. Glucosamine chondroitin 2 tabs p.o. daily. 7. Lactobacillus probiotic one tablet p.o. daily. 8. Triamterene/hydrochlorothiazide 37.5/25 one tablet p.o. daily. 9. Flomax 0.4 mg p.o. at bedtime. He will discontinue his [place] that he was taking previously. Electronically Signed By: CHRYSTAL LINTON MD 08/08/19 1129 PATIENT NAME: ELODIA BUSH SR DISCHARGE SUMMARY DATE OF : 54 REPORT #: [id number] PHYSICIAN: CHRYSTAL LINTON MD PCP: JASON SANTAMARIA MD REPORT IS CONFIDENTIAL AND NOT TO BE RELEASED WITHOUT AUTHORIZATION [facility] [address], [place] [address] Signed DISCHARGE PLAN: He is to return to see me in approximately 3-4 weeks and we will outline a plan for contrast study and ultimately takedown of ileostomy. Home health through [facility] has been organized to assist with his ileostomy in the early stages, he will be quite capable of managing independently in the near future. He will follow up with his usual physician Laquita Santamaria in the future as well. DISCHARGE DIAGNOSES: 1. Perforated diverticulitis with free air and intra abdominal abscess status post exploration and drainage of abscess, left colectomy with primary anastomosis and diverting protective loop ileostomy. 2. History of chronic aortic dissection extending from arch to diaphragm without known sequela (2015) 3. Hypertension. 4. Benign prostatic hypertrophy. 5. History of appendectomy and cardiac stent placeme MD MANDEEP Guajardo/NAILA /[id number] cc: MD Petra Ann DO Copies: JASON SANTAMARIA MD, KATHLEEN DO ~ Electronically Signed By: CHRYSTAL LINTON MD 08/08/19 1129 PATIENT NAME: JORDANELODIA SALGADO SR DISCHARGE SUMMARY DATE OF : 54 REPORT #: [id number] PHYSICIAN: CHRYSTAL LINTON MD PCP: JASON SANTAMARIA MD REPORT IS CONFIDENTIAL AND NOT TO BE RELEASED WITHOUT AUTHORIZATION
--- NOTE | 2019-08-09 12:02 | NUR ---
SPOKE WITH TIKA FROM [facility]. SHE STATES THEY CALLED PATIENT AND HE IS REFUSING HOME HEALTH. STATES HE IS NOT SURE WHERE HE WILL BE. CALLED DR VALERO OFFICE, THEY WILL HAVE SOMEONE CALL ME BACK TO DISCUSS POSSIBLE OUTPATIENT OSTOMY FOLLOW UP.
--- NOTE | 2019-08-09 13:39 | NUR ---
CHW CALLED PATIENT-CHW WAS NOTIFIED PATIENT DECLINED HOME HEALTH SERVICES FOR HIS OSTOMY CARE. CHW SPOKE WITH PATIENT. HE STATED HE DID NOT DECLINE SERVICES BUT REQUESTED A LATER DATE TO BE SEEN BECAUSE HE HAD TO TAKE CARE OF HIS HORSES AND FEED THEM. HH STATED THEY WOULD HAVE TO REQUEST A NEW SET OF ORDERS FROM THE PHYSICIAN IF THEY DO NOT SEE PATIENT WITHIN A TIMEFRAME PERMITTED BY THE STATE. CHW DISCUSSED IF HE WOULD LIKE [facility] ORDERS FOR OUTPATIENT FOR EITHER DAY SURGERY AND [facility] DAY SURGERY. PATIENT WOULD LIKE OUTPATIENT ORDERS TO BE SEEN IN DAY SURGERY AT [facility]. CHW PROVIDED INFORMATION TO STEELWORKER TOMA FOR ORDERS TO BE SENT AND REQUESTED. CHW STATED FOR PATIENT TO CONTACT DR LINTON OFFICE FOR OSTOMY SUPPLIES BY FRIDAY BECAUSE OF THE HOLIDAY WEEKEND COMING UP CHW SUGGESTED TO STOCK UP ON SUPPLIES IN CASE OF THE NEED DURING THE HOLIDAY TIMEFRAME. PATIENT AGREED. INFORMATION PROVIDED TO STEELWORKER TOMA.
--- NOTE | 2019-08-09 16:44 | NUR ---
CALLED PATIENT TO INFORM HIM HE IS ABLE TO GO TO DAY SURGERY TO GET HELP WITH HIS OSTOMY CARE. TALKED TO HIM AND HIS AND TOLD THEM BOTH.
== END 2019-08-07 11:35 | disposition home or self-care (01) | DRG 331 ==
LOC: ED 21:57 → MS 07-28 01:28 → CCU 07-28 01:28 → MS 07-28 10:20
PROVIDERS: ADMIT Surgery
PROC: 0D1B0Z4 Bypass Ileum to Cutaneous, Open Approach (ICD-10-PCS; 2019-07-30)
PROC: 3E0T3BZ Introduction of Anesthetic Agent into Peripheral Nerves and Plexi, Percutaneous Approach (ICD-10-PCS; 2019-07-30)
PROC: 0DTN0ZZ Resection of Sigmoid Colon, Open Approach (ICD-10-PCS; principal; 2019-07-30 13:31)
PROC: 30233N1 Transfusion of Nonautologous Red Blood Cells into Peripheral Vein, Percutaneous Approach (ICD-10-PCS; 2019-08-06)
DX: K57.20 Diverticulitis of large intestine with perforation and abscess without bleeding (principal); G89.18 Other acute postprocedural pain; I10 Essential (primary) hypertension; N40.0 Benign prostatic hyperplasia without lower urinary tract symptoms; Z95.5 Presence of coronary angioplasty implant and graft; Z88.8 Allergy status to other drugs, medicaments and biological substances; Z79.899 Other long term (current) drug therapy; Z79.891 Long term (current) use of opiate analgesic
CPT/HCPCS: 00790; 36415; 64488; 71045; 74018; 74177; 76942; 80048; 80053; 81001; 83605; 83690; 83735; 84100; 85025; 86850; 86900; 86901; 86902; 86922; 87040; 87070; 87075; 87077; 87186; 87205; 88307; 93005; 93010; 94760; 94762; 96361; 99285-25; 99406; A9270; J0131; J0330; J1100; J1170; J1450; J1644; J1720; J1885; J1956; J2185; J2250; J2270; J2405; J2550; J2704; J2765; J2795; J3010; J7030; J7121; Q9967

== ENCOUNTER 2019-08-13 07:52 | Emergency (ER) | payer MEDICARE, OTHER ==
[~2019-08-13] VITALS: Ht 185.4 cm; Wt 72.6 kg
[~2019-08-13 07:52] MED LIST changes: +IBUPROFEN600 MG PO; +LEVOFLOXACIN500 MG PO; +METRONIDAZOLE250 MG PO; +PROBIOTIC1 EAC4 PO; +SUCRALFATE1 GM PO; +TAMSULOSIN HCL0.4 MG PO; +TRIAMTERENE-HC1 EAC1 PO; +TYLENOL EXTRA500 MG PO
--- OUTSIDE RECORDS SUMMARY | 2019-08-13 07:54 | XMS ---
PreManage Notification: ELODIA BUSH Security Him Assistant Events No recent Security Events currently on file [facility] CARE PROVIDERS JASON SANTAMARIA Family [facility] 07/28/2019-Current PHONE: Unknown Jason Santamaria Treatment Current [place] PHONE: Unknown Jen has no Care Guidelines for this patient. Erendira VISIT COUNT (12 MO.) 2 [facility] TOTAL 2 NOTE: Visits indicate total known visits. ED/UCC VISIT TRACKING (12 MO.) 08/13/2019 07:53 [facility] [place] TYPE: Emergency COMPLAINT: - COLOSTOMY BAG PROBLEM 07/27/2019 21:57 [facility] [place] TYPE: Emergency COMPLAINT: - ABD PAIN INPATIENT VISIT TRACKING (12 MO.) 07/28/2019 01:28 [facility] [place] TYPE: Medical Surgical COMPLAINT: - ABDOMINAL PAIN DIAGNOSES: - Allergy status to oth drug/meds/biol subst status - Essential (primary) hypertension - Essential (primary) hypertension - Other assisted (current) drug therapy - Other acute postprocedural pain - Other buttermaker continuous churn (current) drug therapy - Benign prostatic hyperplasia without lower urinry tract symp - Other acute postprocedural pain - oysterman (current) use of opiate analgesic - Unspecified abdominal pain - Dvtrcli of lg int w perforation and abscess w/o bleeding - Allergy status to oth drug/meds/biol subst status - Presence of coronary angioplasty implant and graft - Presence of coronary angioplasty implant and graft - [facility] (current) use of opiate analgesic - Benign prostatic hyperplasia without lower urinry tract symp - Dvtrcli of lg int w perforation and abscess w/o bleeding [email or web address]
== END 2019-08-13 08:38 | disposition home or self-care (01) ==
LOC: ED 07:52
DX: Z43.2 Encounter for attention to ileostomy (principal); I10 Essential (primary) hypertension; E78.5 Hyperlipidemia, unspecified; F17.200 Nicotine dependence, unspecified, uncomplicated; Z88.8 Allergy status to other drugs, medicaments and biological substances; Z79.899 Other long term (current) drug therapy; Z79.82 Long term (current) use of aspirin
CPT/HCPCS: 99283

== ENCOUNTER 2019-08-21 09:56 | Emergency (ER) | payer MEDICARE, OTHER ==
[~2019-08-21] VITALS: Ht 185.4 cm; Wt 72.6 kg
--- OUTSIDE RECORDS SUMMARY | 2019-08-21 09:58 | XMS ---
PreManage Notification: ELODIA BUSH Security Lone Lead Lineman Events No recent Security Events currently on file CRITERIA MET - [facility] - [facility] - 2 Visits in 30 Days CARE PROVIDERS JASON SANTAMARIA Family Medicine 07/28/2019-Current PHONE: Unknown Jason Santamaria Treatment Current [place] PHONE: Unknown Jen has no Care Guidelines for this patient. Care History Medical/Surgical 08/16/2019 [facility] - PATIENT HAS OUTPATIENT ORDERS WITH [facility]- FOR EDUCATION FOR ILEOSTOMY CARE- DR LINTON SET UP THE ORDERS. E.D. VISIT COUNT (12 MO.) 3 [facility] TOTAL 3 NOTE: Visits indicate total known visits. ED/UCC VISIT TRACKING (12 MO.) 08/21/2019 09:57 [facility] TYPE: Emergency COMPLAINT: - COLOSTOMY BAG PROBLEM 08/13/2019 07:53 [facility] TYPE: Emergency COMPLAINT: - COLOSTOMY BAG PROBLEM DIAGNOSES: - Essential (primary) hypertension - Allergy status to oth drug/meds/biol subst status - Encounter for attention to ileostomy - Other chcf (current) drug therapy - Nicotine dependence, unspecified, uncomplicated - Hyperlipidemia, unspecified - snf (current) use of aspirin 07/27/2019 21:57 [facility] TYPE: Emergency COMPLAINT: - ABD PAIN INPATIENT VISIT TRACKING (12 MO.) 07/28/2019 01:28 [facility] TYPE: Medical Surgical COMPLAINT: - ABDOMINAL PAIN DIAGNOSES: - Allergy status to oth drug/meds/biol subst status - Essential (primary) hypertension - Essential (primary) hypertension - Other chcf (current) drug therapy - Other acute postprocedural pain - Other termination clerk (current) drug therapy - Benign prostatic hyperplasia without lower urinry tract symp - Other acute postprocedural pain - snf (current) use of opiate analgesic - Unspecified abdominal pain - Dvtrcli of lg int w perforation and abscess w/o bleeding - Allergy status to oth drug/meds/biol subst status - Presence of coronary angioplasty implant and graft - Presence of coronary angioplasty implant and graft - snf (current) use of opiate analgesic - Benign prostatic hyperplasia without lower urinry tract symp - Dvtrcli of lg int w perforation and abscess w/o bleeding [email or web address]
== END 2019-08-21 10:42 | disposition home or self-care (01) ==
LOC: ED 09:56
DX: Z43.3 Encounter for attention to colostomy (principal); I10 Essential (primary) hypertension; E78.5 Hyperlipidemia, unspecified; F17.200 Nicotine dependence, unspecified, uncomplicated; Z88.8 Allergy status to other drugs, medicaments and biological substances; Z79.899 Other long term (current) drug therapy; Z79.82 Long term (current) use of aspirin
CPT/HCPCS: 99282

== ENCOUNTER 2019-09-14 02:39 | Emergency (ER) | payer MEDICARE, OTHER ==
[~2019-09-14] VITALS: Ht 185.4 cm; Wt 72.6 kg
--- OUTSIDE RECORDS SUMMARY | 2019-09-14 02:42 | XMS ---
PreManage Notification: ELODIA BUSH Security Electrical Contacts Adjuster Events No recent Security Events currently on file CRITERIA MET - [facility] - [facility] - 2 Visits in 30 Days CARE PROVIDERS JASON SANTAMARIA Family Medicine 07/28/2019-Current PHONE: Unknown Jason Santamaria Treatment Current [place] PHONE: Unknown Jen has no Care Guidelines for this patient. Care History Medical/Surgical 08/16/2019 [facility] - PAT[facility]- FOR EDUCATION FOR ILEOSTOMY CARE- DR LINTON SET UP THE ORDERS. E.D. VISIT COUNT (12 MO.) 4 [facility] TOTAL 4 NOTE: Visits indicate total known visits. ED/UCC VISIT TRACKING (12 MO.) 09/14/2019 02:40 [facility] TYPE: Emergency COMPLAINT: - COLOSTOMY BAG LEAK 08/21/2019 09:57 [facility] TYPE: Emergency COMPLAINT: - COLOSTOMY BAG CARE DIAGNOSES: - Other custodial (current) drug therapy - Hyperlipidemia, unspecified - Nicotine dependence, unspecified, uncomplicated - Encounter for attention to colostomy - Essential (primary) hypertension - Allergy status to oth drug/meds/biol subst status - half-way (current) use of aspirin 08/13/2019 07:53 [facility] TYPE: Emergency COMPLAINT: - COLOSTOMY BAG PROBLEM DIAGNOSES: - Essential (primary) hypertension - Allergy status to oth drug/meds/biol subst status - Encounter for attention to ileostomy - Other custodial (current) drug therapy - Nicotine dependence, unspecified, uncomplicated - Hyperlipidemia, unspecified - 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 07/27/2019 21:57 [facility] TYPE: Emergency COMPLAINT: - ABD PAIN INPATIENT VISIT TRACKING (12 MO.) 07/28/2019 01:28 [facility] TYPE: Medical Surgical COMPLAINT: - ABDOMINAL PAIN DIAGNOSES: - Allergy status to oth drug/meds/biol subst status - Essential (primary) hypertension - Essential (primary) hypertension - Other superintendent container terminal (current) drug therapy - Other acute postprocedural pain - Other custodial (current) drug therapy - Benign prostatic hyperplasia without lower urinry tract symp - Other acute postprocedural pain - 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
== END 2019-09-14 05:13 | disposition home or self-care (01) ==
LOC: ED 02:39
DX: Z43.3 Encounter for attention to colostomy (principal); I10 Essential (primary) hypertension; E78.5 Hyperlipidemia, unspecified; F17.200 Nicotine dependence, unspecified, uncomplicated; Z88.8 Allergy status to other drugs, medicaments and biological substances; Z79.899 Other long term (current) drug therapy; Z79.82 Long term (current) use of aspirin
CPT/HCPCS: 99282

== ENCOUNTER 2019-09-21 09:49 | Inpatient (IN) | payer MEDICARE, OTHER ==
[~2019-09-21] VITALS: Ht 185.4 cm; Wt 72.6 kg
--- NOTE | ~2019-09-21 | DS ---
[facility] [address], [place] [address] Draft ADMISSION DATE: 09/28/2019 DISCHARGE DATE: 09/30/2019 REASON FOR ADMISSION: This 69-year-old black man underwent emergency operation including sigmoid resection, drainage of abscess from perforated diverticulitis and primary anastomosis of the colon for perforated diverticulitis with abscess on July 30, 2019. A protective loop ileostomy was undertaken. Postoperatively he had prolapse of his distal ileal segment, but it has been functioning well otherwise. He is admitted at this time to undergo takedown of the ileostomy by segmental bowel resection and anastomosis. PHYSICAL EXAMINATION: GENERAL: A thin black man, who looks to be in no acute distress. CHEST: Clear. HEART: Regular without murmur. ABDOMEN: Soft and flat. A well-healed low midline incision is noted. An ileostomy with a proboscoid, prolapsing distal segment is noted, but it is viable otherwise. HOSPITAL COURSE: On September 28, 2019, he underwent excision of the loop ileostomy with segmental bowel resection and end-to-end anastomosis. The operation went without complication. He had a postoperative unilateral right-sided TAP block as well. He was begun on clear liquids the night of operation and advanced to a full liquid and solid diet on postoperative day #1. By postoperative day #2, he is tolerating oral intake well and he has had bowel movements. The ostomy site is healing well with local wound care and he is ready for discharge. DISCHARGE MEDICATIONS: Include: 1. Motrin 600 mg one p.o. q.6 hours p.r.n. pain #60. 2. Amlodipine 10 mg p.o. daily. 3. Aspirin 81 mg p.o. daily. 4. Vitamin C 1000 mg two tablets p.o. daily. 5. Multivitamin Centrum Silver Men tablet one p.o. daily. 6. Fish oil 1000 mg capsule daily. 7. Calcium carbonate 600 mg p.o. daily. 8. Glucosamine chondroitin tablet two tablets p.o. daily. 9. Lactobacillus probiotic one p.o. daily. 10. Triamterene-hydrochlorothiazide p.o. daily. 11. Tamsulosin (Flomax) 0.4 mg p.o. at bedtime. PATIENT NAME: ELODIA BUSH SR DISCHARGE SUMMARY DATE OF : 54 REPORT #: [id number] PHYSICIAN: CHRYSTAL LINTON MD PCP: JASON SANTAMARIA MD REPORT IS CONFIDENTIAL AND NOT TO BE RELEASED WITHOUT AUTHORIZATION [facility] [address], [place] [address] Draft 12. Tylenol Extra Strength 500 mg two tablets p.o. q.6 hours as needed for pain. 13. Carafate 1 g p.o. before meals and at bedtime. DISCHARGE DIAGNOSES: 1. History of perforated diverticulitis with abscess, status post segmental bowel resection primary anastomosis and protective loop ileostomy. 2. Prolapsing loop ileostomy related to early excessive lifting (postop). 3. Takedown of ileostomy on September 28, 2019, with segmental small bowel resection and anastomosis. 4. Hypertension. 5. Benign prostatic hypertrophy. 6. Peptic disease. FOLLOWUP PLANS: He is to return to see me in approximately a month. He will return also to see his usual physician, Dr. Santamaria, as usual. MD MANDEEP Guajardo/GENAROL /[id number] cc: Jason Santamaria MD Copies: JASON SANTAMARIA MD ~ PATIENT NAME: ELODIA BUSH DISCHARGE SUMMARY DATE OF : 54 REPORT #: [id number] PHYSICIAN: CHRYSTAL LINTON MD PCP: JASON SANTAMARIA MD REPORT IS CONFIDENTIAL AND NOT TO BE RELEASED WITHOUT AUTHORIZATION
--- NOTE | 2019-09-28 11:52 | NUR ---
09/28/19 Miya2 Christine De La Fuente 1148-PATIENT ARRIVED TO PACU ON 6L MASK RR EVEN. SR. NONAROUSABLE. RLQ DRESSING CDI. IVF INFUSING.
--- NOTE | 2019-09-28 12:30 | NUR ---
Patient arrives to the unit via hospital bed via PACU. Report received by RACH King. Orders acknowledged. LR running at 85 mls/hr. Vital signs taken, assessment complete. Dressing over RLQ is C/D/I. Hypoactive bowel tones noted. Patient denies tenderness to abdomen, nausea, or pain. SCDs in place, CPOX in place with an SpO2 of 98% on RA. Clear liquid tray ordered. Patient denies further needs at this time, call light within reach.
--- NOTE | 2019-09-28 13:40 | NUR ---
Assessment complete. Bowel tones hypoactive, dressing over RLQ presents with slight shadowing, will continue to assess. LR running at 85 mls/hr. Vital signs taken. Patient tolerating clear liquids with no pain or nausea. Denies further needs, call light within reach.
--- NOTE | 2019-09-28 13:51 | NUR ---
PATIENT SITTING UP IN BED. IN ROOM. I&O DONE. VITAL SIGNS DONE BY RN. SETS UP TABLE FOR LUNCH. CALL LIGHT WITHIN REACH. NO OTHER NEEDS AT THIS TIME
--- NOTE | 2019-09-28 14:06 | NUR ---
CHECKING ON PT AFTER HE ARRIVED IN M/S FROM PACU. PT SIPPING ON BROTH AND SEEMS TO BE DOING WELL. PT THANKED ME FOR COMING BY, EXTENDED A BLESSING AND WILL FOLLOW NEEDED
--- NOTE | 2019-09-28 14:24 | NUR ---
PT REPORTS PAIN 3-4/10 SCHEDULED TYLENOL GIVEN AT THIS TIME. KIM RN EDUCATION CORDINATOR AT BEDSIDE.
--- NOTE | 2019-09-28 14:37 | NUR ---
PT APPEARS RECEPTIVE OF PT TEACHING REGARDING HIS PROCEDURE. I WILL TALK WITH HIM AGAIN TOMORROW. REVIEWED THE LOOP ILEOSTOMY REVERSAL INFORMATION WITH HIM. STATES UNDERSTANDING.
--- NOTE | 2019-09-28 14:40 | NUR ---
Assessment complete, vital signs taken. Bowel tones hypoactive. Guaze in place in RLQ, slight shadowing present, no change from last assessment. Patient reports pain of 3/10, prn pain medication given. in room at bedside. Warm blankets provided, no further needs at this time. Call light within reach.
--- NOTE | 2019-09-28 15:45 | NUR ---
Assessment complete. Hypoactive bowel tones, patient denies pain or nausea. Dressing over RLQ is C/D/I. Vital signs taken. Warm blankets provided. No needs at this time, call light within reach.
--- NOTE | 2019-09-28 17:23 | NUR ---
PATIENT SITTING UP IN BED. IN ROOM. VITAL SIGNS AND I&O DONE. CALL LIGHT WITHIN REACH. NO OTHER NEEDS AT THIS TIME
--- NOTE | 2019-09-28 19:35 | NUR ---
IN ROOM FOR REPORT, PT IS AWAKE IN BED. HE DENIES NEEDS AT THIS TIME. CALL LIGHT IS CLOSE.
--- NOTE | 2019-09-28 21:21 | NUR ---
IN ROOM TO ASSESS PT AND ADMINISTER MEDICATIONS. PT REPORTS PAIN AT 3/10 WHICH IS TOLERABLE. REMINDED PT TO USE SPLINT WHEN COUGHING/DEEP BREATHING. GAUZE HAS DRAINAGE NOTED BUT IS NOT COMPLETELY SATURATED YET. BT ARE ACTIVE BUT PT HAS NOT PASSED GAS YET. PT DENIES FURTHER NEEDS AT THIS TIME. CALL LIGHT IS CLOSE.
--- NOTE | 2019-09-28 23:17 | NUR ---
PT IS RESTING WITH EYES CLOSED, RR IS EVEN AND NONLABORED. CALL LIGHT IS CLOSE AND IV IS INFUSING FINE.
--- NOTE | 2019-09-29 00:45 | NUR ---
PT IS AWAKE IN BED, HE DENIES NEEDS AT THIS TIME.
--- NOTE | 2019-09-29 01:36 | NUR ---
IN ROOM TO ADMINISTER TORADOL AND GET VS AND I&O'S. PT'S DRESSING HAS SANGUINOUS DRAINAGE NOTED ON GAUZE. CPOX IS IN PLACE AND PT MAINTAINS IN UPPER 90'S TO 100%. HE HAS PASSED GAS AND DENIES FURTHER NEEDS AT THIS TIME. CALL LIGHT IS CLOSE.
--- NOTE | 2019-09-29 02:50 | NUR ---
PT IS RESTING WITH EYES CLOSED, RR IS EVEN AND NONLABORED. CALL LIGHT IS CLOSE. IV IS INFUSING FINE.
--- NOTE | 2019-09-29 04:13 | NUR ---
PT'S IV PUMP WAS BEEPING, IT IS NOW INFUSING FINE. HE DENIES NEEDS AT THIS TIME AND STATES HE IS PASSING GAS MORE. CALL LIGHT IS CLOSE.
--- NOTE | 2019-09-29 05:41 | NUR ---
IN ROOM TO ADMINISTER TYLENOL. VS AND I&O'S ENTERED AND PT DENIES FURTHER NEEDS AT THIS TIME. CALL LIGHT IS WITHIN REACH.
--- NOTE | 2019-09-29 06:03 | NUR ---
PT'S PAIN WAS WELL CONTROLLED WITH TYLENOL AND TORADOL. HE IS PASSING GAS AND BT ARE ACTIVE. HE WORE SCD'S FOR MOST OF THE NIGHT BUT WANTED A BREAK THIS MORNING FROM THEM. HE HAS LR INFUSING AT 85MLS/HR. HE AMBULATES SBA. CPOX WAS WNL WITH PT ON RA. HE IS TOLERATING CLEAR LIQUIDS AND IS HOPING TO HAVE HIS DIET ADVANCED TODAY.
--- NOTE | 2019-09-29 07:20 | NUR ---
Bedside report received by RACH Weathers. Orders acknowledged. Patient sitting up in bed watching tv. LR running at 85 mls/hr. Patient denies pain or nausea. Requests desire to have diet advanced. Denies further needs at this time, call light within reach.
--- NOTE | 2019-09-29 10:00 | NUR ---
Patient ambulated hallways with nursing staff independently, saline locked. Returned to bed independently. Denies pain or nausea. No further needs at this time, call light within reach.
--- NOTE | 2019-09-29 11:45 | NUR ---
Patient ambulating the hallways with nursing staff independently. Saline locked. Dressing change performed on RLQ. Denies pain or nausea. No further needs at this time, call light within reach.
--- NOTE | 2019-09-29 12:08 | OR ---
[facility] [address], [place] [address] Signed DATE OF OPERATION: 09/28/2019 SURGEON: Chrystal Linton MD PREOPERATIVE DIAGNOSES: 1. History of emergency sigmoid resection with primary anastomosis for perforated diverticulitis and abscess with protective loop ileostomy, July 30, 2019. 2. Unwanted loop ileostomy. POSTOPERATIVE DIAGNOSES: 1. History of emergency sigmoid resection with primary anastomosis for perforated diverticulitis and abscess with protective loop ileostomy, July 30, 2019. 2. Unwanted loop ileostomy. PROCEDURES: 1. Segmental small bowel resection with end-to-end anastomosis. 2. Closure abdominal wall defect. ANESTHESIA: General endotracheal; Nilsa Haines CRNA, and postoperative unilateral right-sided TAP block. INDICATION: This 69-year-old white man underwent emergency operation including sigmoid resection, drainage of abscess and primary anastomosis of the colon for perforated diverticulitis with abscess on July 30, 2019. A protective loop ileostomy was undertaken. Postoperatively, he did have some prolapsing of the distal segment of the ileostomy, but has been functioning well generally. He has recovered fully from his initial problem, has undergone contrast study showing a patent anastomosis. No evidence of anastomotic leak or other problem. He is here to undergo takedown of the loop ileostomy by segmental bowel resection with anastomosis. DESCRIPTION OF PROCEDURE: The patient was brought to the operating room, given a general endotracheal anesthetic. Preoperative antibiotics were given. Sequential compression device stockings used and heparin subcutaneously administered. The abdomen was prepared with a chlorhexidine solution and draped sterilely. As there was some egress from the proximal segment, the ileostomy was oversewn with running silk suture to avoid ongoing contamination. Electronically Signed By: CHRYSTAL LINTON MD 09/29/19 1208 PATIENT NAME: ELODIA BUSH SR OPERATIVE REPORT DATE OF : 54 REPORT #: [id number] PHYSICIAN: CHRYSTAL LINTON MD PCP: JASON SANTAMARIA MD REPORT IS CONFIDENTIAL AND NOT TO BE RELEASED WITHOUT AUTHORIZATION [facility] [address], [place] [address] Signed Using electrocautery, the skin margin around the ileostomy site was incised and dissection carried through the subcutaneous tissue with electrocautery. The fascial connections were freed with sharp and electrocautery dissection ultimately allowing for complete mobility of the loop ileostomy out of the abdomen. Areas designated as appropriate for anastomosis were identified. The defunctionalized segment was only slightly smaller than the functional segment. The mesentery was scored with electrocautery and hemostats applied. The mesentery divided. Two Markel clamps were applied to the segments for transection and the bowel was transected. An end-to-end enteroenterostomy was then undertaken in a two-layer technique of interrupted 3-0 silks suture in the serosal layer and interrupted 3-0 Vicryl in the mucosal layer. Good patency and vascularity were noted to both proximal and distal segments. The anastomosis was only a few centimeters from the ileocecal valve itself as the antimesenteric fat pad was visible. The mesenteric defect was secured with interrupted 3-0 silk suture and the completed anastomosis replaced into the abdominal cavity. The peritoneum was freed from the overlying fascial layer and secured with running 2-0 Vicryl suture. The muscular defect through the rectus abdominis muscle was reapproximated with interrupted 2-0 PDS suture. The fascial defect of the rectus abdominis and portion of the external oblique were reapproximated with interrupted 2-0 PDS suture after irrigation of the muscular layers. The Ashley's layer was loosely reapproximated with interrupted 3-0 Vicryl and a single interrupted 3-0 Vicryl was used for the deep dermis. A gauze dressing was applied. There was no further closure of the wound undertaken after irrigation of the subcutaneous layer. The patient then underwent a unilateral right-sided TAP block by the repairer maintenance building. He was ultimately extubated and transferred to recovery room in good condition having suffered no complications. Sponge, needle, and instrument counts were reported as correct x3. Chrystal Linton MD JM/MODL /[id number] Electronically Signed By: CHRYSTAL LINTON MD 09/29/19 1208 PATIENT NAME: ELODIA BUSH SR OPERATIVE REPORT DATE OF : 54 REPORT #: [id number] PHYSICIAN: CHRYSTAL LINTON MD PCP: JASON SANTAMARIA MD REPORT IS CONFIDENTIAL AND NOT TO BE RELEASED WITHOUT AUTHORIZATION [address] [address] Signed cc: Jason Santamaria MD Copies: JASON SANTAMARIA MD ~ Electronically Signed By: CHRYSTAL LINTON MD 09/29/19 1208 PATIENT NAME: ELODIA BUSH SR OPERATIVE REPORT DATE OF : 54 REPORT #: [id number] PHYSICIAN: CHRYSTAL LINTON MD PCP: JASON SANTAMARIA MD REPORT IS CONFIDENTIAL AND NOT TO BE RELEASED WITHOUT AUTHORIZATION
--- NOTE | 2019-09-29 13:06 | NUR ---
PT ALERT, ORIENTED AND SITTING UP IN BED MAKING LOTS OF PHONE CALLS. PT APPEARS TO BE DOING MUCH BETTER, SAID HE IS HEADING HOME TOMORROW. GAVE PT A BLESSING AND WILL CONTINUE TO FOLLOW
--- NOTE | 2019-09-29 13:46 | NUR ---
Med rec completed.
--- NOTE | 2019-09-29 14:42 | NUR ---
In and spoke with Milad. He states he is doing well, wanting more food. Lives between [place] and [place]. 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 Has been walking animals daily to improve his endurance so he can dc home quicker. Pt plans on discharge to home when able with .
--- NOTE | 2019-09-29 14:45 | NUR ---
Patient sitting up in bed watching tv. Scheduled tylenol given, water refreshed. Saline locked. Denies further needs at this time, call light within reach.
--- NOTE | 2019-09-29 18:02 | NUR ---
Patient ambulating hallways independently, saline locked. Denies SOB, pain or nausea.
--- NOTE | 2019-09-29 18:21 | PATH ---
[facility] [address], [place] [address] Signed SPECIMEN(S): A ILEUM SEGMENT SPECIMEN SOURCE: A. ILEUM SEGMENT CLINICAL HISTORY: Status post perforated sigmoid with ileostomy. FINAL PATHOLOGIC DIAGNOSIS: Segment of ileum with ileostomy (loop ileostomy), takedown: - Ileostomy with chronic inflammation and reactive changes. - Ileal segments with serosal adhesions. - Viable surgical margins. - Negative for dysplasia or malignancy. NAL:cml:C2NR MICROSCOPIC EXAMINATION: Histologic sections of all submitted blocks are examined by light microscopy. These findings, together with the gross examination, support the pathologic diagnosis. GROSS DESCRIPTION: The specimen, labeled "LR, A segment of ileum on the requisition," is received in formalin and consists of two segments of previously opened small bowel that measure 3 x 2.5 cm and 10 x 2.8 cm. One end of each piece is attached to a thin strip of vazquez wrinkled skin. The mucosa of each segment is bingham to pale red with the normal intestinal folds and no masses. Motorcycle Tester sections are submitted as follows: (A1) Motorcycle Tester section of both margins of longer segment of small bowel (A2) Motorcycle Tester section of both margins of shorter segment of small bowel (A3) Motorcycle Tester section of each segment of small bowel, midportion. SS (under the direct supervision of a pathologist) The Gross Description was prepared using a voice recognition system. The report was reviewed for accuracy; however, sound-alike word errors, addition and/or deletions may occur. If there is any question about this report, please contact Client Services. PERFORMING LABORATORY: The technical component was performed by [facility], [address] [place] [id number] (Hot Tamale Worker: Meg Medina MD; CLIA# [id number]). PATIENT NAME: ELODIA BUSH SR PATHOLOGY DATE OF : 54 REPORT #: [id number] PHYSICIAN: [facility] PCP: JASON MENDOZA MD REPORT IS CONFIDENTIAL AND NOT TO BE RELEASED WITHOUT AUTHORIZATION [facility] [address], [place] [address] Signed Professional [facility], [address] [place] [id number] ([place]ale Worker: Haile Ramachandran MD; CLIA# [id number]). Diagnostician: Macarena Mack MD Pathologist Electronically Signed 09/29/2019 Copies: ~ PATIENT NAME: ELODIA BUSH SR PATHOLOGY DATE OF : 54 REPORT #: [id number] PHYSICIAN: [facility] PCP: JASON MENDOZA MD REPORT IS CONFIDENTIAL AND NOT TO BE RELEASED WITHOUT AUTHORIZATION
--- NOTE | 2019-09-29 19:18 | NUR ---
IN ROOM FOR REPORT, PT IS AWAKE IN BED AND DENIES NEEDS AT THIS TIME. CALL LIGHT IS CLOSE.
--- NOTE | 2019-09-29 22:15 | NUR ---
IN ROOM TO ASSESS PT AND ADMINISTER MEDICATIONS. HE DENIES PAIN EVEN WITH PUSHING ON ABDOMEN. DRESSING CHANGED AND THERE WAS A SMALL AMOUNT OF SANGUINOUS DRAINAGE. PT WALKED MANY TIMES TODAY AND DENIED HEPARIN INJ. HE IS TOLERATING A REGULAR DIET AND IS HOPEFUL TO GO HOME TOMORROW. HE IS PASSING GAS AND HAD BMS TODAY. PT DENIES NEEDS. CALL LIGHT IS CLOSE.
--- NOTE | 2019-09-30 00:10 | NUR ---
PT IS RESTING WITH EYES CLOSED, RR IS EVEN AND NONLABORED. CALL LIGHT IS CLOSE.
--- NOTE | 2019-09-30 02:24 | NUR ---
PT IS HAVING TROUBLE SLEEPING, HE IS NOT IN PAIN AND STATES THAT HE FEELS GOOD. HE IS JUST HAVING TROUBLE SHUTTING OFF HIS MIND. RECOMMENDED A WALK. PT IS WALKING IN THE HALLS AND VERY STEADY ON HIS FEET.
--- NOTE | 2019-09-30 05:58 | NUR ---
PT AWAKE IN ROOM, WATCHING TV. SCHEDULED MED PROVIDED. NO OTHER NEEDS, CALL LIGHT IN REACH.
--- NOTE | 2019-09-30 07:20 | NUR ---
BEDSIDE HANDOFF REPORT RECEIVED FROM BOAT BUILDER AND REPAIRER RN. PT RESTING IN BED. PT DENIES PAIN AT THIS TIME.
--- NOTE | 2019-09-30 08:07 | NUR ---
PATIENT IN BED RESTING. BREAKFAST ORDERED. CALL LIGHT WITHIN REACH. NO FURTHER NEEDS AT THIS TIME.
--- NOTE | 2019-09-30 10:00 | NUR ---
PT RESTING IN BED. PT ON ROOM AIR, LUNG SOUNDS CLEAR. PT TOLERATING REGULAR DIET, DENIES NAUSEA, REPORT OF BM THIS AM, BOWEL TONES ACTIVE. IV SALINE LOCKED. PT DENIES PAIN. CMS INTACT, WITHOUT EDEMA, PT REFUSED SQ HEPARIN, ENCOURAGED AMBULATION, PT AGREEABLE. PT ABLE TO COMPLETE DRESSING CHANGE TO RLQ ILEOSTOMY TAKEDOWN SITE. DISCUSSED PLAN OF CARE FOR THE DAY, PT HOPING TO DC TODAY. PT DENIES OTHER NEEDS AT THIS TIME. PT NOW WALKING IN THE [place].
--- NOTE | 2019-09-30 12:40 | NUR ---
Spoke with Milad. Friend is in the room. Pt is dressed in overalls and walking in room. States he ate regular diet, had bm, and has been out walking in [place] several times. Wanting to know when he can leave. Let him know Dr. Lopez is not in the hospital, but will have a case at 1 pm. He states he will wait, then states he may call Dr. Lopez. Let him know Dr. Lopez has office hours this morning.
[2019-09-30] MEDS ORDERED: IBUPROFEN600 MG PO (14:09)
== END 2019-09-30 14:50 | disposition home or self-care (01) | DRG 331 ==
LOC: DSVR 09-28 06:30 → MS 09-28 06:30
PROVIDERS: ADMIT Surgery
PROC: 3E0T3BZ Introduction of Anesthetic Agent into Peripheral Nerves and Plexi, Percutaneous Approach (ICD-10-PCS; 2019-09-28)
PROC: 3E0T33Z Introduction of Anti-inflammatory into Peripheral Nerves and Plexi, Percutaneous Approach (ICD-10-PCS; 2019-09-28)
PROC: 0DBB0ZZ Excision of Ileum, Open Approach (ICD-10-PCS; principal; 2019-09-28 08:30)
DX: Z43.2 Encounter for attention to ileostomy (principal); G89.18 Other acute postprocedural pain; I10 Essential (primary) hypertension; F17.210 Nicotine dependence, cigarettes, uncomplicated; N40.0 Benign prostatic hyperplasia without lower urinary tract symptoms; Z88.8 Allergy status to other drugs, medicaments and biological substances; Z79.82 Long term (current) use of aspirin; Z79.899 Other long term (current) drug therapy; Z87.11 Personal history of peptic ulcer disease
CPT/HCPCS: 00790; 64488; 76942; 94762; J0330; J0690; J0694; J1100; J1644; J1885; J2250; J2405; J2704; J2795; J3475; J7060; J7121

== ENCOUNTER 2020-11-27 07:33 | Emergency (ER) | payer MEDICARE, OTHER ==
[~2020-11-27] VITALS: Ht 185.4 cm; Wt 72.6 kg
--- OUTSIDE RECORDS SUMMARY | 2020-11-27 07:36 | XMS ---
PreManage Notification: ELODIA BUSH Security Family Medicine Physician Assistant Events No recent Security Events currently on file CRITERIA MET - [facility] - [facility] - 2 Visits in 30 Days CARE PROVIDERS JASON MENDOZA [facility] 07/28/2019-Current PHONE: [phone] Jen has no Care Guidelines for this patient. Care History Medical/Surgical 08/16/2019 [facility] - PATIENT HAS OUTPATIENT ORDERS WITH [facility] - [facility] SURGERY- FOR EDUCATION FOR ILEOSTOMY CARE- DR LINTON SET UP THE ORDERS. E.DDiamond VISIT COUNT (12 MO.) 2 [facility] TOTAL 2 NOTE: Visits indicate total known visits. ED/UCC VISIT TRACKING (12 MO.) 11/27/2020 07:33 [facility] TYPE: Emergency COMPLAINT: - RIB PAIN, UNABLE TO EAT 11/20/2020 05:22 [facility] [place] TYPE: Emergency COMPLAINT: - BACK PAIN INPATIENT VISIT TRACKING (12 MO.) No inpatient visits to display in this time frame [email or web address]
[2020-11-27] MEDS ORDERED: HYDROCODON-ACE1 EA10 PO (07:48)
== END 2020-11-27 13:26 | disposition short-term general hospital (02) ==
LOC: ED 07:33
DX: I71.00 Dissection of unspecified site of aorta (principal); I10 Essential (primary) hypertension; E78.5 Hyperlipidemia, unspecified; F17.200 Nicotine dependence, unspecified, uncomplicated; Z88.8 Allergy status to other drugs, medicaments and biological substances; Z79.899 Other long term (current) drug therapy; Z79.82 Long term (current) use of aspirin
CPT/HCPCS: 71046; 71275; 74174; 80053; 81001; 83690; 85025; 99285-25; J2405; J7030; J7060; Q9967; U0003

== ENCOUNTER 2021-04-01 16:31 | Emergency (ER) | payer MEDICARE, OTHER ==
[~2021-04-01] VITALS: Ht 185.4 cm; Wt 72.6 kg
[~2021-04-01 16:31] MED LIST changes: +HYDROCODON-ACE1 EA10 PO
--- OUTSIDE RECORDS SUMMARY | 2021-04-01 16:34 | XMS ---
PreManage Notification: ELODIA BUSH Security Web Development Consultant Events No recent Security Events currently on file CRITERIA MET - [facility] CARE PROVIDERS JASON MENDOZA [facility] 07/28/2019-Current PHONE: [phone] Jen has no Care Guidelines for this patient. Care History Medical/Surgical 08/16/2019 [facility] - PATIENT HAS OUTPATIENT ORDERS WITH [facility] SURGERY- FOR EDUCATION FOR ILEOSTOMY CARE- DR LINTON SET UP THE ORDERS. E.D. VISIT COUNT (12 MO.) 3 [facility]. TOTAL 3 NOTE: Visits indicate total known visits. ED/UCC VISIT TRACKING (12 MO.) 04/01/2021 16:32 [facility] TYPE: Emergency COMPLAINT: - ABD PAIN 11/27/2020 07:33 [facility] TYPE: Emergency COMPLAINT: - RIB PAIN, UNABLE TO EAT DIAGNOSES: - Hyperlipidemia, unspecified - manager terminal (current) use of aspirin - Other terminologist (current) drug therapy - Essential (primary) hypertension - Nicotine dependence, unspecified, uncomplicated - Dissection of unspecified site of aorta - Allergy status to other drugs, medicaments and biological substances - Nausea with vomiting, unspecified 11/20/2020 05:22 [facility] TYPE: Emergency COMPLAINT: - BACK PAIN INPATIENT VISIT TRACKING (12 MO.) 11/27/2020 15:11 [facility] [place] TYPE: Cardiology DIAGNOSES: - Celiac artery compression syndrome - Dissection of unspecified site of aorta - Hypertensive urgency - Dissection of thoracoabdominal aorta - Chronic kidney disease, stage 3a [email or web address]
[2021-04-01] MEDS ORDERED: ASPIRIN81 MG PO (16:46)
--- NOTE | 2021-04-02 07:31 | EKG ---
[facility] [address] [facility] [place] [address] Signed Normal sinus rhythm Possible Left atrial enlargement Nonspecific T wave abnormality Prolonged QT Abnormal ECG Confirmed by YESI CUEVA MD ([id number]) on 04/02/2021 7:31:07 AM Electronically Signed By: YESI CUEVA MD 04/02/21 0731 PATIENT NAME: ELODIA BUSH Electrocardiogram DATE OF : 54 PHYSICIAN: YESI CUEVA MD REPORT #: [id number] REPORT IS CONFIDENTIAL AND NOT TO BE RELEASED WITHOUT AUTHORIZATION
== END 2021-04-01 21:35 | disposition short-term general hospital (02) ==
LOC: ED 16:31
DX: I71.3 Abdominal aortic aneurysm, ruptured (principal); I10 Essential (primary) hypertension; E78.5 Hyperlipidemia, unspecified; F17.200 Nicotine dependence, unspecified, uncomplicated; Z88.8 Allergy status to other drugs, medicaments and biological substances; Z20.822 Contact with and (suspected) exposure to COVID-19; Z79.899 Other long term (current) drug therapy; Z79.82 Long term (current) use of aspirin
CPT/HCPCS: 71275; 74174; 80053; 81001; 85025; 93005; 93010; 99285-25; J1170; J2405; J7060; Q9967; U0003

== ENCOUNTER 2021-12-03 16:23 | Emergency (ER) | payer MEDICARE, OTHER ==
[~2021-12-03] VITALS: Ht 185.4 cm; Wt 72.6 kg
[~2021-12-03 16:23] MED LIST changes: +ASPIRIN81 MG PO
--- NOTE | 2021-12-04 12:37 | EKG ---
[facility] [address] [facility] [place] [address] Signed Normal sinus rhythm Nonspecific T wave abnormality Abnormal ECG When compared with ECG of 01-APR-2021 18:19, Non-specific change in ST segment in Anterior leads Confirmed by PAULA OCONNOR MD ([id number]) on 12/04/2021 12:37:27 PM Electronically Signed By: PAULA OCONNOR MD 12/04/21 1237 PATIENT NAME: ELEAZARELODIA SR Electrocardiogram DATE OF : 54 PHYSICIAN: PAULA OCONNOR MD REPORT #: [id number] REPORT IS CONFIDENTIAL AND NOT TO BE RELEASED WITHOUT AUTHORIZATION
== END 2021-12-03 18:24 | disposition home or self-care (01) ==
LOC: ED 16:23
DX: R55 Syncope and collapse (principal); I10 Essential (primary) hypertension; E78.5 Hyperlipidemia, unspecified; G47.00 Insomnia, unspecified; F17.200 Nicotine dependence, unspecified, uncomplicated; Z88.8 Allergy status to other drugs, medicaments and biological substances; Z79.899 Other long term (current) drug therapy; Z79.82 Long term (current) use of aspirin
CPT/HCPCS: 36415; 80053; 85025; 93005; 93010; 99284-25

== ENCOUNTER 2024-09-08 03:37 | Emergency (ER) | payer MEDICARE, OTHER ==
[~2024-09-08] VITALS: Ht 182.9 cm; Wt 65.9 kg
[~2024-09-08 03:37] MED LIST changes: +CARVEDILOL25 MG PO; +DICLOFENAC SODI50 GM TOP; +GABAPENTIN300 MG PO; +STOOL SOFTENER100 MG PO; +VITAMIN E100 UNI2 PO
[2024-09-08] MEDS ORDERED: diazePAM 10 MG/2 ML SYR IM ONE (04:00)
[2024-09-08] MEDS ORDERED: KETOROLAC TROMETHAMINE 30 MG/ML VIAL IM ONE (04:00)
[2024-09-08] MEDS ORDERED: LIDOCAINE HCL 4% 1 EACH PATCH TD ONE (04:30)
[2024-09-08] MEDS ORDERED: LIDODERM1 EACH TOP (04:44)
[2024-09-08] MEDS ORDERED: TRAMADOL HCL50 MG PO (04:44)
[2024-09-08] MEDS ORDERED: TRAMADOL HCL 50 MG HOME.PACK PO ONE (05:00)
[2024-09-08] MEDS ORDERED: TRAMADOL HCL 50 MG TAB PO ONE (05:00)
[2024-09-08 05:05] VITALS: BP 168/98
== END 2024-09-08 06:26 | disposition home or self-care (01) ==
LOC: ED 03:37
DX: M54.50 Low back pain, unspecified (principal); G89.29 Other chronic pain; I10 Essential (primary) hypertension; E78.5 Hyperlipidemia, unspecified; F17.200 Nicotine dependence, unspecified, uncomplicated; Z88.8 Allergy status to other drugs, medicaments and biological substances; Z91.048 Other nonmedicinal substance allergy status; Z79.82 Long term (current) use of aspirin; Z79.899 Other long term (current) drug therapy
CPT/HCPCS: 96372; 99283-25; A9270; J1885; J3360

== ENCOUNTER 2024-09-11 19:52 | Emergency (ER) | payer MEDICARE, OTHER ==
[~2024-09-11] VITALS: Ht 182.9 cm; Wt 63.0 kg
[~2024-09-11 19:52] MED LIST changes: +LIDODERM1 EACH TOP; +TRAMADOL HCL50 MG PO
[2024-09-11] MEDS ORDERED: TRAMADOL HCL 50 MG TAB PO ONE (20:15)
[2024-09-11] MEDS ORDERED: LIDOCAINE HCL 4% 1 EACH PATCH TD ONE (20:15)
[2024-09-11 20:26] VITALS: BP 148/95
[2024-09-11] MEDS ORDERED: LIDOCAINE PATCH REMOVAL 1 EA TD SCH (21:00)
== END 2024-09-11 20:27 | disposition home or self-care (01) ==
LOC: ED 19:52
DX: M54.50 Low back pain, unspecified (principal); G89.29 Other chronic pain; I10 Essential (primary) hypertension; F17.200 Nicotine dependence, unspecified, uncomplicated; Z95.5 Presence of coronary angioplasty implant and graft; Z88.8 Allergy status to other drugs, medicaments and biological substances; Z91.09 Other allergy status, other than to drugs and biological substances; Z79.82 Long term (current) use of aspirin; Z79.899 Other long term (current) drug therapy
CPT/HCPCS: 99283; A9270